=== PATIENT | female | born 2000 | race Caucasian/White ===

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

== ENCOUNTER 2022-11-23 13:28 | Emergency (ER) | payer OTHER, SELFPAY ==
--- NOTE | ~2022-11-23 | US_ITS ---
EXAMINATION: ULTRASOUND OBSTETRIC LIMITED SECOND TRIMESTER CLINICAL INFORMATION: Suprapubic pain COMPARISON: None TECHNIQUE: Limited sonography performed on an urgent basis. FINDINGS: Single live intrauterine gestation noted in breech position with the placenta posterior and free of the os. Cardiac activity observed at 146 BPM. No retroplacental collections. Abdominal circumference 8.7 cm yields estimated menstrual age 15 weeks 0 days. Head circumference 10.39 cm yields estimated menstrual age 15 weeks 0 days. Femur length 1.35 cm yields estimated menstrual age 14 weeks 0 days. Amniotic fluid volume subjectively appears normal. US/US OB limited IMPRESSION: 15 week gestation. Limited study. No abnormalities noted.
[2022-11-23 13:42] VITALS: BP 144/86; PULSE 96; RESP 20; TEMP 36.6; O2SAT 100; BMI 42.9
--- NOTE | 2022-11-23 13:43 | ED.PREGNANCY ---
HPI - General Chief complaint: Abdominal Pain <VALDEMAR Kidd - Last Filed: 11/23/22 13:45> Stated complaint: Pain 15 Wks <VALDEMAR Kidd - Last Filed: 11/23/22 13:45> Time Seen by Provider: 11/23/22 21:17 <VALDEMAR Kidd - Last Filed: 11/23/22 13:45> Source: patient <Bj Figueroa MD - Last Filed: 11/23/22 21:29> Mode of arrival: ambulatory <Bj Figueroa MD - Last Filed: 11/23/22 21:29> Limitations: no limitations <Bj Figueroa MD - Last Filed: 11/23/22 21:29> History of Present Illness HPI Narrative: Patient primary 15 weeks with lower abdominal pain mostly on the left side since yesterday no vaginal discharge any complaints no fevers chills <Bj Figueroa MD - Last Filed: 11/23/22 21:29> Related Data Home medications: Previous Rx's Medication Instructions Recorded ibuprofen 600 mg tablet 600 mg PO Q8H PRN fever or pain 09/13/20 #20 tabs acetaminophen 325 mg capsule 650 mg PO Q6H PRN fever or pain 05/24/21 (Tylenol) #20 caps cefuroxime axetil 250 mg tablet 250 mg PO BID 7 days #14 tabs 11/23/22 <VALDEMAR Kidd - Last Filed: 11/23/22 13:45> Allergies/Adverse reactions: Allergies Allergy/AdvReac Type Severity Reaction Status Date / Time No Known Allergies Allergy Unverified 08/06/20 17:04 [No Known Allergies*] <VALDEMAR Kidd - Last Filed: 11/23/22 13:45> Review of Systems Review of Systems: Yes all other systems are reviewed and are negative <Bj Figueroa MD - Last Filed: 11/23/22 21:29> PMFSH Past Medical History Surgical History: Surgical History History of tonsillectomy <VALDEMAR Kidd - Last Filed: 11/23/22 13:45> Social History Social History: Social History Advance Directives: No Advance Directives Information Provided: Yes <VALDEMAR Kidd - Last Filed: 11/23/22 13:45> Physical Exam Vital Signs: Vital Signs: Last Vital Signs Temp 98 F 11/23/22 13:42 Pulse 96 11/23/22 13:42 Resp 20 11/23/22 13:42 BP 144/86 H 11/23/22 13:42 Pulse Ox 100 11/23/22 13:42 O2 Del Method 11/23/22 13:42 BMI result Body Mass Index 42.9 <VALDEMAR Kidd - Last Filed: 11/23/22 13:45> Vital Signs: Last Vital Signs Temp 98 F 11/23/22 13:42 Pulse 96 11/23/22 13:42 Resp 20 11/23/22 13:42 BP 144/86 H 11/23/22 13:42 Pulse Ox 100 11/23/22 13:42 O2 Del Method 11/23/22 13:42 BMI result Body Mass Index 42.9 <Bj Figueroa MD - Last Filed: 11/23/22 21:29> Appearance: Alert. Oriented X3. No acute distress. ENT: Pharynx normal. Oral Mucosa moist Neck: Normal inspection. Neck supple. CVS: Normal heart rate and rhythm. Pulses normal. Respiratory: No respiratory distress. Equal air entry bilateral, no wheezing/rales/rhonchi Abdomen: Soft, mild suprapubic tenderness Bowel sounds are present, no mass palpable, no CVA tenderness Skin: Skin warm and dry. Normal skin color. Normal skin turgor. Extremities: No lower extremity edema. No calf tenderness Neuro: Oriented X 3. <Bj Figueroa MD - Last Filed: 11/23/22 21:29> Course Course Course Narrative: RME--21-year-old female at 15 weeks gestation presenting to the ED complaining of lower abdominal/suprapubic > abdominal pain since yesterday. Denies associated fever, chills, nausea/vomiting, vaginal bleeding/discharge Abdomen soft with suprapubic/left lower quadrant tenderness on exam Labs, UA, hCG, Ob pelvic ultrasound ordered <VALDEMAR Kidd - Last Filed: 11/23/22 13:45> Medical Decision Making Medical Decision Making MDM Narrative: Patient a pelvic ultrasound shows IUP 15 weeks with normal heart rates UA showed bacteria and WBC will discharge patient home on Ceftin <Bj Figueroa MD - Last Filed: 11/23/22 21:29> Lab Data [facility] Lab Attestation statement: I reviewed the patient's lab results. <Bj Figueroa MD - Last Filed: 11/23/22 21:29> Result Diagrams: : 11/23/22 16:21 11/23/22 16:21 <VALDEMAR Kidd - Last Filed: 11/23/22 13:45> Labs: Lab Results 11/23/22 11/23/22 11/23/22 Range/Units 15:09 16:21 16:21 WBC 8.2 (4.8-10.8) X10*3/uL RBC 4.04 L (4.20-5.50) X10*6/uL Hgb 12.5 (12.0-16.0) g/dl Hct 37.0 (37.0-47.0) % MCV 91.6 (80.0-98.0) fL MCH 30.9 (27.0-33.0) pg MCHC 33.8 (31.0-35.0) g/dl RDW 12.9 (11.0-16.0) % Plt Count 186 (160-400) X10*3/uL MPV 11.8 (9.4-12.3) fL Immature Gran % (Auto) 0.4 (0.0-0.4) % Neut % (Auto) 68.6 (45-73) % Lymph % (Auto) 22.7 (20-40) % Anderson % (Auto) 7.6 (2-11) % Eos % (Auto) 0.5 (0-4) % Baso % (Auto) 0.2 (0-2) % Lymph # (Auto) 1.9 (1.2-4.9) X10*3/uL Anderson # (Auto) 0.6 (0.1-1.2) X10*3/uL Eos # (Auto) 0.0 (0.0-0.4) X10*3/uL Baso # (Auto) 0.0 (0.0-0.2) X10*3/uL Abs Immat Gran (auto) 0.03 (0.00-0.03) X10*3/uL Absolute Neuts (auto) 5.6 (2.0-8.3) x10*3/uL Absolute Nucleated RBC 0.000 (0.0-0.012) X10*3/uL Nucleated RBC % (auto) 0.0 (0.0-0.2) /100WBC Sodium 135 (135-145) mmol/L Potassium 3.8 (3.3-5.1) mmol/L Chloride 107 (96-108) mmol/L Carbon Dioxide 23 (22-29) mmol/L Anion Gap 9 L (12-20) BUN 8 L (9-16) mg/dL Creatinine 0.73 (0.5-1.4) mg/dL Estim Creat Clear Calc 152.9 Estimated GFR > 60 Random Glucose 81 (60-115) mg/dL Calcium 9.0 (8.4-10.2) mg/dL Total Bilirubin 0.2 (0.0-1.0) mg/dL Direct Bilirubin < 0.2 (0.0-0.5) mg/dL AST 11 (5-31) U/L ALT 9 (0-31) U/L Alkaline Phosphatase 57 (39-117) U/L Total Protein 6.5 (6.5-8.0) g/dL Albumin 3.6 (3.5-5.0) g/dL Lipase 23 (8-78) U/L Beta HCG, Quant 71158 mIU/mL Urine Color Yellow Urine Appearance Cloudy Urine pH 7.0 (5.0-9.0) Ur Specific [place] 1.010 (1.005-1.025) Urine Protein Negative (Neg-Trace) mg/dL Urine Glucose (UA) Negative (Negative) mg/dL Urine Ketones Negative (Negative) mg/dL Urine Blood Negative (Negative) Urine Nitrite Negative (Negative) Ur Leukocyte Esterase Large (3+) H (Negative) Urine RBC 0-2 (0-2) /HPF Urine WBC 21-50 H (0-5) /HPF Ur Squamous Epith Cells 11-20 (0-2) /HPF Urine Bacteria 2+ (None Seen) Hyaline Casts 3-5 (0-2) /LPF <VALDEMAR Kidd - Last Filed: 11/23/22 13:45> Lab Results 11/23/22 11/23/22 11/23/22 Range/Units 15:09 16:21 16:21 WBC 8.2 (4.8-10.8) X10*3/uL RBC 4.04 L (4.20-5.50) X10*6/uL Hgb 12.5 (12.0-16.0) g/dl Hct 37.0 (37.0-47.0) % MCV 91.6 (80.0-98.0) fL MCH 30.9 (27.0-33.0) pg MCHC 33.8 (31.0-35.0) g/dl RDW 12.9 (11.0-16.0) % Plt Count 186 (160-400) X10*3/uL MPV 11.8 (9.4-12.3) fL Immature Gran % (Auto) 0.4 (0.0-0.4) % Neut % (Auto) 68.6 (45-73) % Lymph % (Auto) 22.7 (20-40) % Anderson % (Auto) 7.6 (2-11) % Eos % (Auto) 0.5 (0-4) % Baso % (Auto) 0.2 (0-2) % Lymph # (Auto) 1.9 (1.2-4.9) X10*3/uL Anderson # (Auto) 0.6 (0.1-1.2) X10*3/uL Eos # (Auto) 0.0 (0.0-0.4) X10*3/uL Baso # (Auto) 0.0 (0.0-0.2) X10*3/uL Abs Immat Gran (auto) 0.03 (0.00-0.03) X10*3/uL Absolute Neuts (auto) 5.6 (2.0-8.3) x10*3/uL Absolute Nucleated RBC 0.000 (0.0-0.012) X10*3/uL Nucleated RBC % (auto) 0.0 (0.0-0.2) /100WBC Sodium 135 (135-145) mmol/L Potassium 3.8 (3.3-5.1) mmol/L Chloride 107 (96-108) mmol/L Carbon Dioxide 23 (22-29) mmol/L Anion Gap 9 L (12-20) BUN 8 L (9-16) mg/dL Creatinine 0.73 (0.5-1.4) mg/dL Estim Creat Clear Calc 152.9 Estimated GFR > 60 Random Glucose 81 (60-115) mg/dL Calcium 9.0 (8.4-10.2) mg/dL Total Bilirubin 0.2 (0.0-1.0) mg/dL Direct Bilirubin < 0.2 (0.0-0.5) mg/dL AST 11 (5-31) U/L ALT 9 (0-31) U/L Alkaline Phosphatase 57 (39-117) U/L Total Protein 6.5 (6.5-8.0) g/dL Albumin 3.6 (3.5-5.0) g/dL Lipase 23 (8-78) U/L Beta HCG, Quant 14881 mIU/mL Urine Color Yellow Urine Appearance Cloudy Urine pH 7.0 (5.0-9.0) Ur Specific [place] 1.010 (1.005-1.025) Urine Protein Negative (Neg-Trace) mg/dL Urine Glucose (UA) Negative (Negative) mg/dL Urine Ketones Negative (Negative) mg/dL Urine Blood Negative (Negative) Urine Nitrite Negative (Negative) Ur Leukocyte Esterase Large (3+) H (Negative) Urine RBC 0-2 (0-2) /HPF Urine WBC 21-50 H (0-5) /HPF Ur Squamous Epith Cells 11-20 (0-2) /HPF Urine Bacteria 2+ (None Seen) Hyaline Casts 3-5 (0-2) /LPF <Bj Figueroa MD - Last Filed: 11/23/22 21:29> Discharge Plan Discharge Clinical Impression: UTI (urinary tract infection) <VALDEMAR Kidd - Last Filed: 11/23/22 13:45> Patient Disposition: Home, Self-Care <VALDEMAR Kidd - Last Filed: 11/23/22 13:45> Instructions: Urinary Tract Infection in (ED) <VALDEMAR Kidd - Last Filed: 11/23/22 13:45> Additional Instructions: Drink plenty of fluids Ceftin antibiotic twice daily for 7 days Tylenol for pain Report to ER if vaginal bleed or worsening of pain <VALDEMAR Kidd - Last Filed: 11/23/22 13:45> Prescriptions: New cefuroxime axetil 250 mg tablet 250 mg PO BID 7 Days Qty: 14 0RF No Action ibuprofen 600 mg tablet 600 mg PO Q8H PRN (Reason: fever or pain) Qty: 20 0RF acetaminophen [Tylenol] 325 mg capsule 650 mg PO Q6H PRN (Reason: fever or pain) Qty: 20 0RF <VALDEMAR Kidd - Last Filed: 11/23/22 13:45>
[2022-11-23 15:28] LABS: Appearance Urine Cloudy; Color Urine Yellow; Glucose Urine UA Negative (Negative); Leukocyte Esterase Urine Large (3+) (Negative); Nitrite Urine Negative (Negative); UMIC TRIGGER UACC YES; Urine Blood Negative (Negative); Urine Ketones Negative (Negative); Urine Protein Negative (Neg-Trace)
[2022-11-23 16:01] LABS: Bacteria Urine 2+ (None Seen); RBC Urine 0-2 /HPF (0-2); UACC Culture Trigger YES; WBC Urine 21-50 /HPF (0-5)
[2022-11-23 16:26] LABS: MANUAL DIFF FLAG NO
[2022-11-23 16:27] LABS: Basophils Percent Auto 0.2 % (0-2); Eosinophils Percent Auto 0.5 % (0-4); Hemoglobin 12.5 g/dl (12.0-16.0); Imm Gran Abs Auto 0.03 X10*3/uL (0.00-0.03); Imm Gran Pct Auto 0.4 % (0.0-0.4); Lymphocytes Absolute Auto 1.9 X10*3/uL (1.2-4.9); Lymphocytes Percent Auto 22.7 % (20-40); Mean Corpuscular HGB Conc 33.8 g/dl (31.0-35.0); Mean Corpuscular Hemoglobin 30.9 pg (27.0-33.0); Mean Corpuscular Volume 91.6 fL (80.0-98.0); Mean Platelet Volume 11.8 fL (9.4-12.3); Monocytes Absolute Auto 0.6 X10*3/uL (0.1-1.2); Monocytes Percent Auto 7.6 % (2-11); Neutrophils Absolute Auto 5.6 x10*3/uL (2.0-8.3); Neutrophils Percent Auto 68.6 % (45-73); Platelet Count 186 X10*3/uL (160-400); Red Blood Count 4.04 X10*6/uL (4.20-5.50); Red Cell Distribution Width 12.9 % (11.0-16.0); White Blood Count 8.2 X10*3/uL (4.8-10.8)
[2022-11-23 16:59] LABS: Alanine Aminotransferase 9 U/L (0-31); Albumin Level 3.6 g/dL (3.5-5.0); Alkaline Phosphatase 57 U/L (39-117); Anion Gap 9 (12-20); Aspartate Amino Transferase 11 U/L (5-31); Bilirubin Direct < 0.2 mg/dL (0.0-0.5); Bilirubin Total 0.2 mg/dL (0.0-1.0); Blood Urea Nitrogen 8 mg/dL (9-16); Carbon Dioxide 23 mmol/L (22-29); Chloride 107 mmol/L (96-108); Creatinine Clr Calc Pharmacy 152.9; Estimated Glomerular Filt Rate > 60; Glucose Random 81 mg/dL (60-115); Lipase 23 U/L (8-78); Potassium 3.8 mmol/L (3.3-5.1); Sodium 135 mmol/L (135-145); Total Protein 6.5 g/dL (6.5-8.0)
[2022-11-23 17:21] LABS: HCG Quantitative 28890 mIU/mL
== END 2022-11-23 21:49 | disposition home or self-care (01) ==
PROVIDERS: Physician Assistant; Emergency Provider Internal Medicine; PCP Pediatrics
DX: O23.42 Unspecified infection of urinary tract in pregnancy, second trimester (principal); N39.0 Urinary tract infection, site not specified; Z3A.15 15 weeks gestation of pregnancy
CPT/HCPCS: 36415; 76815; 80048; 80076; 81001; 83690; 84702; 85025; 87086; 99282; 99284

== ENCOUNTER → 2022-11-28 08:38 | Outpatient (BNVA) | payer OTHER, SELFPAY | PROVIDERS: PCP Pediatrics; Visit Provider Advanced Practice Midwife | DX: O23.42 Unspecified infection of urinary tract in pregnancy, second trimester (principal); Z3A.15 15 weeks gestation of pregnancy | CPT/HCPCS: 99202 ==

== ENCOUNTER 2024-01-03 15:00 | Outpatient (AMB) | payer SELFPAY ==
--- NOTE | 2024-01-03 15:00 | MHC.OFFVIS ---
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 States her pain in mainly at base of her thumb and wrist area. States it feels tender, pain with pinching, grabbing and twisting. Pain started about 3 days ago and is worsen. 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 She complains of radial sided wrist & thumb pain with daily activity, worse with pinching, gripping, and twisting activities. She says her pain began ~3 days ago She has a young baby at home She denies any falls or known injury, but says she may have struck her hand against a wall a few days ago, which may be related to her pain [facility] Surgical History History of tonsillectomy Family History (Updated 11/28/22 @ 09:06 by EDGAR Mathews) Mother Ovarian cancer Social History (Updated 01/03/24 @ 15:04 by Christy Choi 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 Female Reproductive History Menstrual Age of Menarche: 17 Review of Systems Const All systems reviewed & are unremarkable except as noted in HPI and below Physical Exam Vital Signs: BMI result Body Mass Index 44.9 Const General: cooperative, healthy appearing and no acute distress Orientation/consciousness: patient oriented x3 HEENT Head: Yes normocephalic and Yes atraumatic Eyes EOM: EOMs intact bilaterally Resp Effort & Inspection: normal respiratory effort and able to speak in complete sentences Cardio Jugular venous distension: no JVD Skin General skin exam: turgor normal Rashes: no rashes Neuro General: patient oriented x3 Extrem Other: Evaluation of Left Upper Extremity: The patient is alert, oriented, and in no acute distress Neuro: Median, Ulnar, Radial nerves motor and sensory intact and sensation is normal to the tips of all digits Vascular: Cap refill brisk ROM: She can make a fist and extend all her digits No locking or catching Skin: No lacerations or abrasions. General: No Ecchymosis. No Erythema or evidence of infection. Mild tenderness over the 1st dorsal compartment Negative or equivocal Kemar test on the left More tenderness over the FCR tendon as it passed distally over the scaphoid tubercle. Most tender to palpation just distal to the scaphoid tubercle over the volar aspect of the basal joint and FPL tendon in the thenar mass. However, she had no tenderness dorsally or radially over the basal joint and a negative CMC grind She also had no pain with resisted FPL function, and no locking or catching with IP joint flexion. No tenderness over the MCP joint, and the MCP joint was stable. No tenderness over the a1 haider Psych Appearance: grossly normal Affect: normal affect Attitude: cooperative Assessment & Plan Assessment & Plan (1) Left wrist pain: Code(s): M25.532 - Pain in left wrist (2) Pain of left thumb: Code(s): M79.645 - Pain in left finger(s) Plan Assessment & Plan: 1. Pain at the volar base of the left thenar mass Etiology unclear This has been going on for only 3 days without any clear injury. She does have a young baby at home that she cares for. I educated her about this condition I discussed activity modification, she should limit or avoid any heavy or repetitive pinching or gripping activities She has a hand based thumb spica splint that is soft that she thinks is helpful. She can use Tylenol or ibuprofen as needed. If she still having problems in 3-4 weeks we can talk about this again. Scribed for Naomi Eckert MD by Jesus Buckley, medical data analyst, on 01/03/24 at 3:15 PM, EST. Coding Level of Care Code New Pt Level 3 (23472) Diagnoses Left wrist pain M25.532 Pain of left thumb M79.645
[2024-01-03 15:03] VITALS: BMI 44.9
== END 2024-01-03 15:12 | disposition home or self-care (01) ==
PROVIDERS: PCP Pediatrics; Visit Provider Orthopaedic Surgery
DX: M25.532 Pain in left wrist (principal); M79.645 Pain in left finger(s)
CPT/HCPCS: 99202

== ENCOUNTER → 2024-01-03 15:00 | Outpatient (BNVA) | payer OTHER, SELFPAY | PROVIDERS: PCP Pediatrics; Visit Provider Orthopaedic Surgery | DX: M79.645 Pain in left finger(s) (principal); M25.532 Pain in left wrist | CPT/HCPCS: 99202 ==

== ENCOUNTER → 2024-01-24 10:04 | Outpatient (BNVA) | payer OTHER, SELFPAY | PROVIDERS: PCP Pediatrics; Visit Provider Surgery | DX: R22.1 Localized swelling, mass and lump, neck (principal) | CPT/HCPCS: 99202 ==

== ENCOUNTER → 2024-01-24 10:26 | Outpatient (AMB) | payer OTHER, SELFPAY ==
--- NOTE | 2024-01-24 10:17 | A.OFFVIS_ITS ---
Intake Intake Visit Reasons: ? cervical lymphadenopathy vs lipoma vs cyst Intake Note: Patient here for cyst on Lt upper post neck. Present for yrs. Patient states it has been enlarging. 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 She has had this since her youth. Over the last several months time it is increased in size and become more symptomatic. She wished to have it removed. She has no such lesions or growths elsewhere. She does have recent symptoms of left eye discomfort and migraines which they are unrelated to this process. She denies any fever, chills, night sweats, weight loss. 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 Patient has no other cervical periclavicular or axillary adenopathy. Assessment & Plan Assessment & Plan (1) Mass in neck: Code(s): R22.1 - Localized swelling, mass and lump, neck Plan Patient would like to have this process excised but can not do it today because she is on work break. Current plan is to arrange for a day which is convenient for her and excised this lesion and the office. All questions answered. Arrangements will be made for this. Coding Level of Care Code New Pt Level 4 (20418) Diagnoses Mass in neck R22.1
== END | disposition home or self-care (01) ==
PROVIDERS: PCP Pediatrics; Visit Provider Surgery
DX: R22.1 Localized swelling, mass and lump, neck (principal)
CPT/HCPCS: 99204

== ENCOUNTER 2024-02-06 08:38 | Outpatient (REF) | payer OTHER, SELFPAY | END 2024-02-06 08:39 | disposition home or self-care (01) | LOC: HO.LNP 08:38 | PROVIDERS: PCP Pediatrics; Visit Provider Surgery | DX: R22.1 Localized swelling, mass and lump, neck (principal) | CPT/HCPCS: 38500; 88304; 88305 ==

== ENCOUNTER 2024-02-06 08:38 | Outpatient (AMB) | payer OTHER, SELFPAY ==
--- NOTE | 2024-02-06 08:45 | A.OFFVIS_ITS ---
Intake Vital Signs 02/06/24 08:46 Height 5 ft 5 in Weight 270 lb BMI 44.9 BP 130/73 Blood Pressure Location Rt brachial Position Sitting Pulse 76 Intake Visit Reasons: Exc cervical lymphadenopathy vs lipoma vs cyst Intake Note: Patient here for cyst exc on Lt upper neck. 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 Risks, benefits, alternatives of excision of this process reviewed the patient included but not limited to bleeding, infection, recurrence, numbness, pain, scarring the patient was to proceed. All questions answered. 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 A transverse incision was made over the mass in question and carried down through skin, s ubcutaneous tissue, were uneventful enucleation of proximally 2 x 1 cm lymph node was performed. Specimen sent to pathology. Wound was irrigated, secured hemostasis, and closed using running 3-0 Vicryl suture followed by Steri-Strips and sterile dressings. Patient tolerated procedure well. [id number] scalp/neck/hands/feet/genitalia 1.1cm-2cm Procedure code (CPT) selection complete Office Meds lidocaine 1 %-epinephrine 1:100,000 injection solution Performing Provider: Miki Hays MD Performing Location: [facility] [place] [facility] Sur[facility] Administered by: Miki Hays MD on 02/06/24 10:02 Dose Route Admin Location Dispensed Lot Number Expiration Date ND Superintendent Logging 10 mL Infiltration 10 mL Assessment & Plan Assessment & Plan (1) Mass in neck: Code(s): R22.1 - Localized swelling, mass and lump, neck Plan: Patient has been given local instructions including ice to the wound, avoiding strenuous activities, Tylenol or Motrin for pain and will see me as directed or p.r.n.. Orders: Orders AMB Excision Today R22.1 - Localized swelling, mass and lump, neck Coding Level of Care Code Est Pt Level 5 (16540) Diagnoses Mass in neck R22.1 CPT Codes Scalp/Neck/Hands/Feet/Genetalia - CPT: 43255-[id number] scalp/neck/hands/feet/genitalia 1.1cm-2cm ([id number])
[2024-02-06 08:46] VITALS: BP 130/73; PULSE 76; BMI 44.9
== END 2024-02-06 09:25 | disposition home or self-care (01) ==
PROVIDERS: PCP Pediatrics; Visit Provider Surgery
DX: R59.0 Localized enlarged lymph nodes (principal)
CPT/HCPCS: 38500

== ENCOUNTER 2024-02-14 11:25 | Outpatient (AMB) | payer OTHER, SELFPAY ==
--- NOTE | 2024-02-14 11:28 | MHC.OFFVIS ---
Intake Vital Signs 02/14/24 11:33 Height 5 ft 5 in Weight 275 lb BMI 45.8 BP 124/75 Blood Pressure Location Rt brachial Position Sitting Pulse 86 Intake Visit Reasons: S/p Exc cervical lymphadenopathy vs lipoma vs cyst Intake Note: Patient here s/p exc on lt upper neck. Reports incision healing well. Patient c/o: denies bleeding, tenderness, redness. EXC 02-06-24. 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 She has no wound issues or complaints. 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 All questions answered. Coding Level of Care Code Global (48909) Diagnoses Postop check Z09
[2024-02-14 11:33] VITALS: BP 124/75; PULSE 86; BMI 45.8
== END 2024-02-14 11:36 | disposition home or self-care (01) ==
PROVIDERS: PCP Pediatrics; Visit Provider Surgery
DX: Z09 Encounter for follow-up examination after completed treatment for conditions other than malignant neoplasm (principal)
CPT/HCPCS: 99024

== ENCOUNTER → 2024-02-14 11:25 | Outpatient (BNVA) | payer OTHER, SELFPAY | PROVIDERS: PCP Pediatrics; Visit Provider Surgery | DX: Z09 Encounter for follow-up examination after completed treatment for conditions other than malignant neoplasm (principal); Z87.2 Personal history of diseases of the skin and subcutaneous tissue | CPT/HCPCS: 99212 ==

== ENCOUNTER 2024-03-12 11:32 | Outpatient (AMB) | payer OTHER, SELFPAY ==
--- NOTE | 2024-03-12 11:38 | A.OFFVIS_ITS ---
Vital Signs 03/12/24 11:45 Height 5 ft 5 in Weight 275 lb BMI 45.8 BP 137/62 Blood Pressure Location Rt brachial Position Sitting Pulse 83 Intake Visit Reasons: neck lumps? rash Intake Note: Patient here concern with itch on sup part of incision scar from previous exc on Lt post neck. Reports bumps underneath scar. 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
[2024-03-12 11:45] VITALS: BP 137/62; PULSE 83; BMI 45.8
--- NOTE | 2024-03-12 12:38 | A.OFFVIS_ITS ---
Vital Signs 03/12/24 11:45 03/12/24 12:39 Height 5 ft 5 in Weight 275 lb BMI 45.8 45.8 BP 137/62 Blood Pressure Location Rt brachial Position Sitting Pulse 83 Intake Visit Reasons: neck lumps? rash Allergies No Known Allergies [No Known Allergies*] Allergy (Verified 03/12/24 11:47) HPI Comments Details: Patient presents for incision evaluation. She has no issues or complaints of site that the incision is still firm. 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 There is firmness which is related to an underlying sutures. Patient was reassured that these take anyw here from 6-12 weeks to dissolve. Quality Reporting (2019) Adult ([facility] ) Body Mass Index: 45.8 Assessment & Plan Assessment & Plan (1) Postop check: Code(s): Z09 - Encounter for follow-up examination after completed treatment for conditions other than malignant neoplasm Category: Surgical Plan Patient has been given local instructions, and will follow-up p.r.n.. All questions answered. Coding Level of Care Code Global (93133) Diagnoses Postop check Z09
[2024-03-12 12:39] VITALS: BMI 45.8
== END 2024-03-12 11:53 | disposition home or self-care (01) ==
PROVIDERS: PCP Pediatrics; Visit Provider Surgery
DX: Z09 Encounter for follow-up examination after completed treatment for conditions other than malignant neoplasm (principal)
CPT/HCPCS: 99024

== ENCOUNTER → 2024-03-12 11:32 | Outpatient (BNVA) | payer OTHER, SELFPAY | PROVIDERS: PCP Pediatrics; Visit Provider Surgery | DX: Z09 Encounter for follow-up examination after completed treatment for conditions other than malignant neoplasm (principal); Z98.890 Other specified postprocedural states | CPT/HCPCS: 99212 ==

== ENCOUNTER 2024-10-29 13:14 | Outpatient (REF) | payer OTHER, SELFPAY ==
--- NOTE | ~2024-10-29 | XR_ITS ---
EXAMINATION: XR HAND RIGHT CLINICAL INFORMATION: Pain in right hand M79.641. COMPARISON: None TECHNIQUE: PA, lateral, and oblique views of the right hand. FINDINGS: No radiographic evidence of acute fracture. Overlapping osseous structures at the carpometacarpal joints limits evaluation. Otherwise, the alignment is anatomic, joint spaces are maintained.. No erosions or soft tissue calcifications. XR/XR hand RT min 3V IMPRESSION: No radiographic evidence of acute osseous abnormality. Limited evaluation of the carpometacarpal joints due to overlapping osseous structures, which could be related to positioning/technique. Wrist radiographs for further evaluation as clinically indicated. Study is assigned/presented to me for interpretation on Dec 05, 2024 Electronically signed by: Garrison Dueñas MD 12/05/2024 04:28 PM ALEX LIRA
== END 2024-10-29 13:15 | disposition home or self-care (01) ==
LOC: HO.HOSX 13:14
PROVIDERS: PCP Pediatrics; Visit Provider Orthopaedic Surgery
DX: M79.641 Pain in right hand (principal)
CPT/HCPCS: 73130; 99212

== ENCOUNTER 2024-10-29 13:14 | Outpatient (AMB) | payer SELFPAY ==
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
[2024-10-29 13:56] VITALS: BMI 45.8
== END 2024-10-29 14:40 | disposition home or self-care (01) ==
LOC: HO.HOS 13:14
PROVIDERS: PCP Pediatrics; Visit Provider Orthopaedic Surgery
DX: M77.8 Other enthesopathies, not elsewhere classified (principal)
CPT/HCPCS: 99213

== ENCOUNTER 2025-04-10 22:47 | Emergency (ER) | payer OTHER, SELFPAY ==
[2025-04-10 22:58] VITALS: BP 124/84; PULSE 86; O2SAT 97
[2025-04-10 23:04] VITALS: BP 142/74; PULSE 86; RESP 18; TEMP 36.6; O2SAT 97; BMI 47.2
--- NOTE | 2025-04-10 23:25 | ED.EXTPRO ---
HPI - Extremity Problem General Chief complaint: Extremity Injury, Upper Stated complaint: laceration on middle and ring finger Time Seen by Provider: 04/10/25 23:19 Source: patient and EMS Mode of arrival: EMS Limitations: no limitations History of Present Illness ED Provider: Dr. Mimi Manuel HPI Narrative: Patient comes to the emergency room complaining of lacerations to the palmar aspect of the left middle and for finger. Patient states that she was trying to open at bag of hot dogs and accidentally sliced her fingers. Denies any other injuries Related Data Home Medications ?Medication ?Instructions ?Recorded ?Confirmed vitamin with calcium 1 tab PO DAILY 11/28/22 11/28/22 no.72-iron 27 mg-folic acid 1 mg tablet (M- Plus) Previous Rx's ?Medication ?Instructions ?Recorded ibuprofen 600 mg tablet 600 mg PO Q8H PRN fever or pain 09/13/20 #20 tabs acetaminophen 325 mg capsule 650 mg (2 x 325 mg) PO Q6H PRN 05/24/21 (Tylenol) fever or pain #20 caps ibuprofen 800 mg tablet 800 mg PO Q8H PRN pain #30 tabs 02/07/24 Allergies Allergy/AdvReac Type Severity Reaction Status Date / Time No Known Allergies Allergy Verified 04/10/25 23:06 [No Known Allergies*] Review of Systems Review of Systems: Constitutional : No Weight loss, No Fever, No Chills, No Night Sweats, No Fatigue, No Malaise ENT/Mouth : No Hearing loss, No Ear Pain, No Nasal Congestion, No Sinus Pain, No Hoarseness, No sore throat, No Rhinorrhea, No Swallowing Difficulty Eyes: No Eye Pain, No Swelling, No Redness, No Foreign Body, No Discharge, No Vision Changes Cardiovascular : No Chest Pain, No SOB, No Dyspnea on Exertion, No Orthopnea, No Edema, No Palpitations Respiratory : No Cough, No Sputum, No Wheezing, No Smoke Exposure, No Dyspnea Gastrointestinal : No Nausea, No Vomiting, No Diarrhea, No Constipation, No abdominal Pain, No Hematochezia, No Melena Genitourinary : no irregular bleeding, No Dysuria, No Urinary Frequency, No Hematuria, No Urinary Incontinence, No Urgency, No Flank Pain, No Urinary Flow Changes, No Hesitancy Musculoskeletal : No joint pain, No Myalgias, No Joint Swelling Skin : complaining of laceration to 2 fingers of the left hand Neuro : No Weakness, No Numbness, No Paresthesias, No Loss of Consciousness, No Dizziness, No Headache Psych : No Anxiety/Panic, No Depression, No SI/HI/AH/VH, No Social Issues, Heme/Lymph: No Bruising, No Bleeding,No Lymphadenopathy Endocrine : No Polyuria, No Polydipsia, No Temperature Intolerance [facility] Past Medical History Surgical History History of tonsillectomy Family History Family History Mother Ovarian cancer Social History Social History Do you have a plan to hurt others: No Plan Current occupational status: employed 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 Oriented X3. No acute distress. Eyes: Pupils equal, round and reactive to light. ENT: Pharynx normal. Neck: Normal inspection. Neck supple. No lymph nodes noted. No crepitus CVS: Normal heart rate and rhythm. Pulses normal. Normal S1 and S2 Respiratory: No respiratory distress. Breath sounds normal. No Wheezing. No rales Abdomen: Soft and nontender. No rigidity. No distention. Skin: Skin warm and dry. Normal skin color. Normal skin turgor. see extremities below Extremities: No lower extremity edema. No Lacerations. No Rash on the palmar aspect of the left hand, patient has a 2 cm laceration on the middle finger and and a 1 cm laceration on the fourth finger. Fingers were examined under a bloodless field. Patient is able to flex and extend all fingers with normal range of motion. No tendons were visualized Neuro: Oriented X 3. No motor deficit. No sensory deficit. Moving all extremities. No slurred speech. CN 2 through 12 grossly intact Psych: calm, cooperative, normal affect Medications Administered Discontinued Medications Generic Name Dose Route Start Last Admin Trade Name Freq PRN Reason Stop Dose Admin Acetaminophen 975 mg 04/10/25 23:24 04/10/25 23:34 Acetaminophen 325 Mg Tablet PO 04/10/25 23:25 975 mg ONCE ONE Administration Lidocaine HCl 20 ml 04/10/25 23:24 04/10/25 23:36 Lidocaine Hcl 1 % 20 Ml Vial INFILTRATI 04/10/25 23:25 20 ml ONCE ONE Administration Medical Decision Making Medical Decision Making MDM Narrative: patient needed 5 stitches in the middle finger and 4 stitches on the 4th finger patient's skin was numbed with 1% lidocaine without epinephrine patient was given a Tdap booster Procedures Laceration Laceration 1: Site: hand ( middle finger) Side (If applicable): left Size (cm): 2 Description: linear Depth: simple, single layer Local Anesthetic: lidocaine 1% Amount of anesthesia used (mL): 5 Pre-repair: wound explored and irrigated extensively Skin layer closed with: nylon Size (cm): 3-0 Number of sutures: 5 Laceration 2: Site: hand ( 4th finger) Side (If applicable): left Size (cm): 1.5 Description: linear Depth: simple, single layer Local Anesthetic: lidocaine 1% Amount of anesthesia used (mL): 5 Pre-repair: wound explored and irrigated extensively Skin layer closed with: nylon Size (cm): 3-0 Number of sutures: 4 Technique: simple, interrupted Discharge Plan Discharge Clinical Impression: Laceration of fingers without complication Patient Disposition: Home, Self-Care Instructions: Laceration (ED), Finger Laceration (ED) Additional Instructions: your stitches need to be removed in 7-10 days. Please follow-up with your primary care physician tomorrow. If you have any worsening or new symptoms, please return to the emergency room or call 911 Prescriptions: No Action ibuprofen 600 mg tablet 600 mg PO Q8H PRN (Reason: fever or pain) Qty: 20 0RF acetaminophen [Tylenol] 325 mg capsule 650 mg PO Q6H PRN (Reason: fever or pain) Qty: 20 0RF M- Plus 27 mg iron- 1 mg tablet 1 tab PO DAILY ibuprofen 800 mg tablet 800 mg PO Q8H PRN (Reason: pain) Qty: 30 0RF Print Language: Slovak
[2025-04-10] MEDS: Acetaminophen 325 MG TABLET 975 MG PO (23:34)
[2025-04-10] MEDS: Lidocaine HCl 1 % 20 ML VIAL INFILTRATI (23:36)
[2025-04-10] MEDS: Diphth,Pertus(ACell),Tet Adult 0.5 ML SYRINGE IM (23:59)
--- OUTSIDE RECORDS SUMMARY | 2025-04-11 00:13 | XMS_ITS | Clinical Summary ---
Author Organization [facility] Address [address] [place] [id number] Phone Care Team Providers Care Classroom Instructor Name Role Phone Unavailable Primary Care Provider Unavailabl e Immunizations Immunization Administration Dates Next Due DTaP 5 06/11/2007, 4,08/25/2003,05/30/2003 ,03/12/2003 Hep B, ped/adol 12/29/2003,08/25/2003,2002 Hib (HbOC) 06/29/2004 Hib (PRP-T) 08/25/2003,05/30/2003,03/12/2003 IPV 06/11/2007,12/29/2003,05/30/2003 ,03/12/2003 Influenza, injectable, trivalent 08/04/2008 MMR 12/29/2003 MMRV 06/11/2007 Pneumococcal Conjugate 01/06/2005,08/25/2003,09/2003,03/12/2003 Unknown Vaccine 06/11/2007 Varicella 12/29/2003 Social History Tobacco Use Types Packs/Day Years Used Date Smoking Tobacco: Never Assessed Comments Unknown Sex and Gender Information Value Date Recorded Sex Assigned at Not on file Legal Sex Female 4:25 PM EDT Gender Identity Not on file Sexual Orientation Not on file Plan of Treatment Health Maintenance Due Date Last Done Comments DTaP,Tdap,and Td Vaccines (6 - Tdap) 2013 06/11/2007, 06/29/2004, 08/25/2003, Additional history exists HPV Vaccines (1 - 3-dose series) 2017 Men B Vaccine (1 of 2 - Standard) 2018 Influenza Vaccines (#1) 2024 08/04/2008 COVID-19 Vaccine ( season) 2024 Hepatitis B Vaccines Completed 12/29/2003, 08/25/2003, 2002 HIB Vaccines Completed 06/29/2004, 04/2003, 05/30/2003, Additional history exists Pneumococcal Vaccine Completed 01/06/2005, 08/25/2003, 05/30/2003, Additional history exists IPV Vaccines Completed 06/11/2007, 07/2004, 05/30/2003, Additional history exists MMR Vaccines Completed 06/11/2007, 12/29/2003 Varicella Vaccines Completed 06/11/2007, 12/29/2003 Hepatitis A Vaccines Aged Out No long er eligible based on patient's age to complete this topic Meningococcal Vaccine Aged Out No kian dao eligible based on patient's age to complete this topic
[2025-04-11 00:19] VITALS: BP 120/68; PULSE 84; RESP 18; TEMP 36.6; O2SAT 98
== END 2025-04-11 00:20 | disposition home or self-care (01) ==
PROVIDERS: Emergency Provider Emergency Medicine
DX: S61.213A Laceration without foreign body of left middle finger without damage to nail, initial encounter (principal); S61.215A Laceration without foreign body of left ring finger without damage to nail, initial encounter; W26.9XXA Contact with unspecified sharp object(s), initial encounter; Y93.9 Activity, unspecified; Y92.9 Unspecified place or not applicable; Y99.8 Other external cause status; Z79.899 Other long term (current) drug therapy; Z23 Encounter for immunization
CPT/HCPCS: 12002; 90471; 90715; 99283; 99284; J2003

== ENCOUNTER 2025-04-21 08:53 | Emergency (ER) | payer OTHER, SELFPAY ==
[2025-04-21 09:04] VITALS: BP 134/78; PULSE 89; RESP 16; TEMP 36.6; O2SAT 97; BMI 45.7
--- NOTE | 2025-04-21 09:15 | ED.GENADULT ---
HPI - General Adult General Chief complaint: General Medical Stated complaint: suture removal Time Seen by Provider: 04/21/25 09:03 Source: patient, RN notes reviewed and old records reviewed Mode of arrival: ambulatory History of Present Illness ED Provider: Michelle Troncoso PA-C [facility] narrative: 24-year-old female with no significant past medical history presenting to the ED for suture removal s/p laceration when opening bag of hot dogs on 04/10/2025. Patient was evaluated in our ED, 9 sutures were placed at that time. Reports persistent paresthesias to area. Denies any complaints at present including surrounding erythema, discharge, increased/worsening pain Related Data Home Medications ?Medication ?Instructions ?Recorded ?Confirmed vitamin with calcium 1 tab PO DAILY 11/28/22 11/28/22 no.72-iron 27 mg-folic acid 1 mg tablet (M-Yasmin Plus) Previous Rx's ?Medication ?Instructions ?Recorded ibuprofen 600 mg tablet 600 mg PO Q8H PRN fever or pain 09/13/20 #20 tabs acetaminophen 325 mg capsule 650 mg (2 x 325 mg) PO Q6H PRN 05/24/21 (Tylenol) fever or pain #20 caps ibuprofen 800 mg tablet 800 mg PO Q8H PRN pain #30 tabs 02/07/24 bacitracin 500 unit/gram topical 1 appl topical BID #30 grams 04/21/25 ointment Allergies Allergy/AdvReac Type Severity Reaction Status Date / Time No Known Allergies Allergy Verified 04/21/25 09:09 [No Known Allergies*] Review of Systems Review of Systems: Yes all other systems are reviewed and are negative Constitutional: Constitutional: Reports as per [facility] Past Medical History Attestation statement: The following information was validated with the patient. 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 Physical Exam ED Vital Signs: Vital Signs - 24 hr 04/21/25 09:04 04/21/25 09:18 Temperature 97.8 F 97.8 F Pulse Rate 89 89 Respiratory Rate 16 16 Blood Pressure 134/78 134/78 Pulse Oximetry 97 97 Oxygen Delivery Method Room Air Room Air BMI result Body Mass Index 45.7 Const General: cooperative, healthy appearing and no acute distress Orientation/consciousness: patient oriented x3 Limitations: no limitations HENMT Head: Yes normal to inspection and Yes atraumatic Ears: hearing grossly normal bilaterally General nose exam: Normal external nose present Face and sinus: Yes normal facial exam Eyes General: appearance normal, both eyes and all related structures EOM: EOMs intact bilaterally Neck Neck: Yes normal visual inspection and Yes no meningeal signs Resp Effort & Inspection: normal respiratory effort and no respiratory distress Cardio Rate: regular rate Skin Other: Healing lacerations noted to left 3rd and 4th digits. Sutures intact. No surrounding erythema/ warmth. Mildly tender to palpation. No fluctuance/ induration or pus drainage. No dehiscence. ROM intact with some discomfort. Sensation intact to light touch Rashes: no rashes Neuro General: patient oriented x3, tone normal and no meningeal signs Cranial nerves: Yes CN's II-XII intact bilaterally Gait exam (Neuro): Normal gait present Extrem General: Yes normal to inspection Procedures Procedure Narrative Procedure Narrative: Suture removal 9 sutures removed from left 3rd and 4th digits without complication Steri-Strips applied to 4th digit Medical Decision Making Medical Decision Making MDM Narrative: 24-year-old female with no significant past medical history presenting to the ED for suture removal s/p laceration when opening bag of hot dogs on 04/10/2025. On exam vital signs stable, NAD, nontoxic appearing physical exam as noted above. Nine sutures removed without complication, steri-Strips applied to 4th digit. no evidence of overlying cellulitis/abscess. Patient with limited ROM secondary to pain/ discomfort. Will refer to hand for follow-up as needed. Please refer to course for remaining clinical decision making, interpretation of labs/imaging results, and discussions with consultants and/or family members. Results discussed with patient including worrisome signs and symptoms and strict return precautions, and when to return to the emergency department. They verbalized understanding and feel safe for discharge at this time. Differential Diagnosis Differential Diagnoses: The differential diagnosis associated with the presentation includes As above External Record Review External record reviewed: Inpatient record, Office record, Outpatient record, Prior outpatient labs, Prior outpatient radiology, Primary care record and Outside ED record Tests considered The following testing was considered but not selected: As above Prescription Management I considered prescription management with: Antibiotic and Other Chronic Conditions Patient?s care impacted by: Other Social Determinants Patient?s care significantly limited by Social Determinants of Health including: Other Social Determinant of Health Discharge Plan Discharge Clinical Impression: Visit for suture removal Patient Disposition: Home, Self-Care Instructions: Stitches Removal (ED) Additional Instructions: Apply bacitracin and or Neosporin daily Once sutures are removed apply anti scar cream like Mederma Follow-up with hand specialist as needed If area begins look infected, is red, there is drainage, streaking, or you have fever please return to the emergency department Prescriptions: New bacitracin 500 unit/gram ointment 1 appl topical BID Qty: 30 0RF No Action ibuprofen 600 mg tablet 600 mg PO Q8H PRN (Reason: fever or pain) Qty: 20 0RF acetaminophen [Tylenol] 325 mg capsule 650 mg PO Q6H PRN (Reason: fever or pain) Qty: 20 0RF M- Plus 27 mg iron- 1 mg tablet 1 tab PO DAILY ibuprofen 800 mg tablet 800 mg PO Q8H PRN (Reason: pain) Qty: 30 0RF Referrals: [facility] – [place] [facility] [Provider Group] - 1 week Interventions: ED Discharge Assessment Last Done: 04/21/25 09:18 Discharge Date/Time: 04/21/25 09:18 Print Language: Ethiopian
[2025-04-21 09:18] VITALS: BP 134/78; PULSE 89; RESP 16; TEMP 36.6; O2SAT 97
--- OUTSIDE RECORDS SUMMARY | 2025-04-21 09:47 | XMS_ITS | Clinical Summary ---
Author Organization [facility] Address [address] [place] [id number] Phone Care Team Providers Care Executive Administrative Asst Name Role Phone Unavailable Primary Care Provider [...]
== END 2025-04-21 09:18 | disposition home or self-care (01) ==
PROVIDERS: Emergency Provider Emergency Medicine Emergency Medical Services
DX: Z48.02 Encounter for removal of sutures (principal); Z79.899 Other long term (current) drug therapy
CPT/HCPCS: 99282; 99283

== ENCOUNTER 2025-04-30 09:18 | Outpatient (AMB) | payer OTHER, SELFPAY ==
[2025-04-30 09:23] VITALS: BMI 45.6
--- NOTE | 2025-04-30 09:23 | A.OFFVIS_ITS ---
Vital Signs 04/30/25 09:23 04/30/25 09:27 Height 5 ft 5 in 5 ft 5 in Weight 274 lb 274 lb BMI 45.6 45.6 Intake Visit Reasons: ED follow up LT MF&RF laceration 04/10/25 Intake Note: yCnthia 24 yr old right hand dominant female presents today fo rher left hand DOI: 04/10/25. Patient reports lacerating the palmar aspect of the left 3rd and 4th left digits. Patient states that she was trying to open at bag of hot dogs and accidentally sliced her fingers. She expresses she is having difficulty with flexion and extension of her 3rd and 4th digits of left hand. She is also having numbness in her middle finger. Allergies No Known Allergies [No Known Allergies*] Allergy (Verified 04/30/25 09:29) HPI HPI ED follow up LT MF&RF laceration 04/10/25: Details: Cynthia 24 yr old right hand dominant female presents today fo rher left hand DOI: 04/10/25. Patient reports lacerating the palmar aspect of the left 3rd and 4th left digits. Patient states that she was trying to open at bag of hot dogs and accidentally sliced her fingers. She expresses she is having difficulty with flexion and extension of her 3rd and 4th digits of left hand. She is also having numbness in her middle finger. 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 Neuro: No sensation at the level of and distal to the laceration of the left middle finger, primarily on the ulnar aspect Slightly diminished sensation on the radial aspect of the left middle finger distal to the incision Normal sensation to the left ring finger Normal sensation of the tips of all digits of the right hand at this time Vascular: Cap refill brisk Pain: No tenderness to palpation around the laceration sites on the left middle and ring fingers Patient does have discomfort with both flexion and extension of the digits ROM: Patient is able to make a week closed fist, able to be passively extended fully and can hold mostly full extension Skin: No lacerations or abrasions. General: No ecchymosis, erythema, or evidence of infection. Psych: Appears grossly normal Affect normal Attitude cooperative Assessment & Plan Assessment & Plan (1) Laceration of left ring finger: Code(s): S61.215A - Laceration without foreign body of left ring finger without damage to nail, initial encounter Category: Medical (2) Laceration of left middle finger: Code(s): S61.213A - Laceration without foreign body of left middle finger without damage to nail, initial encounter Category: Medical Plan 1. Laceration of left middle and ring fingers complicated by digital nerve injury of the left middle finger 2. Stiffness of left hand Patient is educated about these conditions Patient is educated about the typical recovery course At this time, patient is informed that there is nothing we can do 1 month later for a digital nerve injury, and in his likely she will continue to have diminished sensation in the left middle finger and this may or may not return Patient expresses understanding of this With regards to what appears to be stiffness of the left hand, patient is referred to occupational therapy for range of motion, very gentle strengthening of the left hand Patient is amenable to this plan Follow-up as Orders: Orders OT Evaluation and Treatment 04/30/25 S61.213A - Laceration without foreign body of left middle finger without damage to nail, initial encounter, S61.215A - Laceration without foreign body of left ring finger without damage to nail, initial encounter Coding Level of Care Code Est Pt Level 3 (74885) Diagnoses Laceration of left ring finger S61.215A Laceration of left middle finger S61.213A
[2025-04-30 09:27] VITALS: BMI 45.6
--- OUTSIDE RECORDS SUMMARY | 2025-04-30 10:00 | XMS_ITS | Clinical Summary ---
Author Organization [facility] Address [address] [place] [phone] Phone Care Team Providers Care Sales Training Coordinator Name Role Phone Unavailable Primary Care Provider [...]
== END 2025-04-30 10:19 | disposition home or self-care (01) ==
LOC: HO.HOS 09:19
DX: S61.215A Laceration without foreign body of left ring finger without damage to nail, initial encounter (principal); S61.213A Laceration without foreign body of left middle finger without damage to nail, initial encounter
CPT/HCPCS: 99213

== ENCOUNTER → 2025-04-30 09:18 | Outpatient (BNVA) | payer OTHER, SELFPAY | DX: Z09 Encounter for follow-up examination after completed treatment for conditions other than malignant neoplasm (principal); S61.213A Laceration without foreign body of left middle finger without damage to nail, initial encounter; S61.215A Laceration without foreign body of left ring finger without damage to nail, initial encounter; W26.0XXA Contact with knife, initial encounter; Y93.G3 Activity, cooking and baking; Y92.000 Kitchen of unspecified non-institutional (private) residence as the place of occurrence of the external cause; Y99.9 Unspecified external cause status | CPT/HCPCS: 99212 ==

== ENCOUNTER 2025-09-12 08:35 | Emergency (ER) | payer OTHER, SELFPAY ==
--- NOTE | ~2025-09-12 | XR_ITS ---
EXAMINATION: XR CHEST CLINICAL INFORMATION: chest pain COMPARISON: None available. TECHNIQUE: Frontal view of the chest was obtained. FINDINGS: No significant abnormality is noted involving the heart, lungs, mediastinum, bony thorax or soft tissues. XR/XR chest 1V IMPRESSION: No acute disease Electronically signed by: Ean Figueroa MD 09/12/2025 10:09 AM EDT
--- NOTE | ~2025-09-12 | CT_ITS ---
EXAMINATION: CT HEAD WITHOUT CONTRAST CLINICAL INFORMATION: Headache COMPARISON: None available. TECHNIQUE: Contiguous axial imaging was performed from the skull base to vertex without intravenous administration of contrast. This CT examination was performed using dose optimization techniques as appropriate, variously including the following: *Automated exposure control *Adjustment of mA and/or kV according to patient size (this includes techniques or standardized protocols for targeted exams where dose is matched to indication/reason for exam; i.e. extremities or head) *Use of iterative reconstruction technique FINDINGS: There is no acute ischemic change. There is no intracranial hemorrhage. There is no mass-effect or midline shift. Basal cisterns and ventricles are within normal limits for age/cerebral volume. Orbits are symmetrical and unremarkable. Paranasal sinuses and mastoid air cells are pneumatized. There are no bony abnormalities. CT/CT head/brain wo IV con IMPRESSION: No acute intracranial abnormality. Electronically signed by: Ean Figueroa MD 09/12/2025 10:16 AM EDT
--- NOTE | 2025-09-12 08:38 | ECG_ITS ---
Test Reason : chest pain Blood Pressure : */* mmHG Vent. Rate : 79 BPM Atrial Rate : 79 BPM P-R Int : 152 ms QRS Dur : 88 ms QT Int : 350 ms P-R-T Axes : 57 59 18 degrees QTcB Int : 401 ms Normal sinus rhythm with sinus arrhythmia Normal ECG No previous ECGs available Referred By: Generic ED Physician Electronically Signed By: MARINA RODRÍGUEZ MD
[2025-09-12 08:48] VITALS: BP 121/60; PULSE 73; RESP 18; TEMP 36.7; O2SAT 99; BMI 44.0
[2025-09-12 09:02] LABS: MANUAL DIFF FLAG NO
[2025-09-12 09:08] LABS: Hematocrit 39.3 % (37.0-47.0); Hemoglobin 13.1 g/dl (12.0-16.0); Imm Gran Abs Auto 0.01 X10*3/uL (0.00-0.03); Imm Gran Pct Auto 0.1 % (0.0-0.4); Lymphocytes Absolute Auto 2.5 X10*3/uL (1.2-4.9); Mean Corpuscular HGB Conc 33.3 g/dl (31.0-35.0); Mean Corpuscular Hemoglobin 30.1 pg (27.0-33.0); Mean Corpuscular Volume 90.3 fL (80.0-98.0); NRBC Abs Auto 0.000 X10*3/uL (0.0-0.012); NRBC Pct Auto 0.0 /100WBC (0.0-0.2); Platelet Count 202 X10*3/uL (160-400); Red Blood Count 4.35 X10*6/uL (4.20-5.50); White Blood Count 7.6 X10*3/uL (4.8-10.8)
[2025-09-12 09:17] LABS: UPreg QC Valid YES
[2025-09-12 09:26] LABS: Alanine Aminotransferase 14 U/L (0-31); Albumin Level 4.7 g/dL (3.5-5.0); Alkaline Phosphatase 69 U/L (39-117); Anion Gap 11 (12-20); Aspartate Amino Transferase 14 U/L (5-31); Blood Urea Nitrogen 17 mg/dL (9-16); Calcium 9.5 mg/dL (8.4-10.2); Carbon Dioxide 24 mmol/L (22-29); Chloride 108 mmol/L (96-108); Creatinine Clr Calc Pharmacy 136.2; Estimated Glomerular Filt Rate > 60; Potassium 4.0 mmol/L (3.3-5.1); Sodium 139 mmol/L (135-145); Total Protein 7.6 g/dL (6.5-8.0)
--- NOTE | 2025-09-12 09:26 | ED_ITS ---
HPI - General Adult General Chief complaint: General Medical Stated complaint: vomiting, CP, headache Time Seen by Provider: 09/12/25 09:17 Source: patient and old records reviewed Mode of arrival: ambulatory Limitations: no limitations History of Present Illness ED Provider: REBEKA DOTY narrative: 24 yo female with PMH Of UTI, tendonitis here with c/o 1 week AM wakes up feels weak and feels like her vision gets blurry when she tries to get up. She notes it goes away after a few minutes of rest. She also c/o headache on L side that is sharp and intermittent - she denies head trauma, numbness, weakness. She also reports L chest pain with movements, no dyspnea, no cough, no fevers. She has no hx of CAD in young family members or sudden cardiac . She denies any neck issues/pain/trauma/manipulation. She also notes she felt nauseated and vomited this AM. MD complaint: multiple complaints Onset (ago): week(s) (1) Location: head, chest and abdomen Radiation: non-radiation Severity: moderate Quality: stabbing and aching Pain Consistency: intermittent Relieving factors: none Exacerbating factors: movement Associated symptoms: headaches and nausea/vomiting Treatments prior to arrival: none Related Data Home Medications ?Medication ?Instructions ?Recorded ?Confirmed amoxicillin 500 mg capsule 500 mg PO Q8H 09/10/25 [id number] carb-vit K 1 tab PO DAILY 08/21 01/14 18 mg iron-400 mcg-500 mg tablet Previous Rx's ?Medication ?Instructions ?Recorded ibuprofen 600 mg tablet 600 mg PO Q8H PRN fever or p ain 09/13/20 #20 tabs acetaminophen 325 mg capsule 650 mg (2 x 325 mg) PO Q6 H PRN 05/24/21 (Tylenol) fever or pain #20 caps famotidine 20 mg tablet (Pepcid) 20 mg PO DAILY PRN ab dominal 09/12/25 discomfort #30 tabs ondansetron 4 mg disintegrating 4 mg PO Q8H PRN nausea and 09/12/25 tablet vomiting #20 tabs Allergies Allergy/AdvReac Type Severity Reaction Status Date / Time No Known Allergies (No Known Allergy Verified 09/12/25 08:51 Allergies*) Review of Systems 2 Review of Systems: Constitutional : No Fever, No Chills, No Fatigue ENT/Mouth : No sore throat, No Rhinorrhea Eyes: No Eye Pain, No Swelling, No Redness Cardiovascular : No Chest Pain, No SOB, No Dyspnea on Exertion Respiratory : No Cough, No Sputum Gastrointestinal : pos Nausea, pos Vomiting, No Diarrhea, No abdominal Pain Genitourinary : No Dysuria, No Urinary Frequency, No Hematuria, Musculoskeletal : No joint pain, No Myalgias, No Joint Swelling Skin : No Skin Lesions, No rash Neuro : pos Weakness, No Numbness, No Dizziness, positive Headache All other systems reviewed and are negative [facility] Past Medical History Attestation statement: The following information was validated with the patient. 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 Oriented X3. No acute distress. Eyes: Pupils equal, round and reactive to light. ENT: Pharynx normal. normal TMs Neck: Normal inspection. Neck supple. CVS: Normal heart rate and rhythm. Pulses normal. Respiratory: No respiratory distress. Breath sounds normal. Abdomen: Soft and nontender. Skin: Skin warm and dry. Normal skin color. Normal skin turgor. Extremities: No lower extremity edema. No calf ttp Neuro: Oriented X 3. No motor deficit. No sensory deficit. CN2-12 intact Medications Administered Discontinued Medications Generic Name Dose Route Start Last Admin Trade Name Christopher PRN Reason Stop Dose Admin Famotidine 20 mg 09/12/25 09:45 09/12/25 10:10 Famotidine/Pf 20 Mg/2 Ml Vial IVPUSH 09/12/25 09:46 20 mg ONCE ONE Administration Lactated Ringer's 1,000 mls @ 999 mls/hr 09/12/25 09:45 09/12/25 10:09 Lr IV 09/12/25 10:45 999 mls/hr .Q1H1M ONE Administration Ketorolac Tromethamine 15 mg 09/12/25 09:45 09/12/25 10:10 Ketorolac Tromethamine 15 Mg/Ml Vial IVPUSH 09/12/25 09:46 15 mg ONCE ONE Administration Ondansetron HCl 4 mg 09/12/25 09:45 09/12/25 10:10 Ondansetron Hcl 4 Mg/2 Ml Vial IVPUSH 09/12/25 09:46 4 mg ONCE ONE Administration Medical Decision Making Medical Decision Making [facility] Narrative: 24 yo female with PMH Of UTI, tendonitis here with c/o chest pains, vision changes when standing this week, sharp intermittent L side headache on exam she has no neuro deficits, she has no ACS risk factors, her abd exam is benign, she has distal pulses intact doubt dissection, she has no reason for dissection of vertebral arteries, she is PERC negative doubt VTE. She has multipe vague complaints. At this time labs, EKG, CT head for mass, CXR, trop x 1, pain control, pepcid/toradol/zofran Differential Diagnosis Differential Diagnoses: The differential diagnosis associated with the presentation includes gastritis, stress, chest wall pain, headaches Admission/Observation Consideration of admission/observation: Escalation of care including admission/observation considered work up reasssuring neg ortho VS stable for DC Lab Data [facility] Lab Attestation statement: I reviewed the patient's lab results. 09/12/25 08:59 09/12/25 08:59 Labs: Lab Results 09/12/25 09/12/25 Range/Units 08:59 09:02 WBC 7.6 (4.8-10.8) X10*3/uL RBC 4.35 (4.20-5.50) X10*6/uL Hgb 13.1 (12.0-16.0) g/dl Hct 39.3 (37.0-47.0) % MCV 90.3 (80.0-98.0) fL MCH 30.1 (27.0-33.0) pg MCHC 33.3 (31.0-35.0) g/dl RDW 12.5 (11.0-16.0) % Plt Count 202 (160-400) X10*3/uL MPV 11.9 (9.4-12.3) fL Immature Gran % (Auto) 0.1 (0.0-0.4) % Neut % (Auto) 58.4 (45-73) % Lymph % (Auto) 33.3 (20-40) % Robertson % (Auto) 7.0 (2-11) % Eos % (Auto) 0.9 (0-4) % Baso % (Auto) 0.3 (0-2) % Lymph # (Auto) 2.5 (1.2-4.9) X10*3/uL Robertson # (Auto) 0.5 (0.1-1.2) X10*3/uL Eos # (Auto) 0.1 (0.0-0.4) X10*3/uL Baso # (Auto) 0.0 (0.0-0.2) X10*3/uL Abs Immat Gran (auto) 0.01 (0.00-0.03) X10*3/uL Absolute Neuts (auto) 4.4 (2.0-8.3) x10*3/uL Absolute Nucleated RBC 0.000 (0.0-0.012) X10*3/uL Nucleated RBC % (auto) 0.0 (0.0-0.2) /100WBC Sodium 139 (135-145) mmol/L Potassium 4.0 (3.3-5.1) mmol/L Chloride 108 (96-108) mmol/L Carbon Dioxide 24 (22-29) mmol/L Anion Gap 11 L (12-20) BUN 17 H (9-16) mg/dL Creatinine 0.84 (0.5-1.4) mg/dL Estim Creat Clear Calc 136.2 Estimated GFR > 60 Random Glucose 93 (60-115) mg/dL Calcium 9.5 (8.4-10.2) mg/dL Total Bilirubin 0.3 (0.0-1.0) mg/dL AST 14 (5-31) U/L ALT 14 (0-31) U/L Alkaline Phosphatase 69 (39-117) U/L Troponin I High Sens < 2.7 (<3.5-17.0) ng/L Total Protein 7.6 (6.5-8.0) g/dL Albumin 4.7 (3.5-5.0) g/dL Urine Test NEGATIVE (NEGATIVE) Independent Interpretation I performed an independent interpretation of an: EKG, Plain X-Ray (normal ) and CT Scan (normal ) Interpretation: Rate: 79 Rhythm: NSR [place]: normal Normal P waves. Normal SHONDA. Normal QRS complex. ST T wave : inverted t waves V1 and III no RFAI qTC: 401 prior studies: no acute ischemia The study has been interpreted contemporaneously by me. . Radiology Impression Discussion of test interpretation with radiology: I have reviewed the radiologist's reading. External Record Review External record reviewed: Outpatient record Prescription Management I considered prescription management with: Other Discharge Plan Discharge Clinical Impression: Atypical chest pain, Dizziness Patient Disposition: Home, Self-Care Instructions: Chest Pain (ED), Dizziness (ED) Additional Instructions: blood pressure normal when standing labs reassuring, negative test normal electrocardiogram CT head normal chest xray normal rest and stay hydrated return for any worsening symptoms or concerns. Prescriptions: New famotidine [Pepcid] 20 mg tablet 20 mg PO DAILY PRN (Reason: abdominal discomfort) Qty: 30 2RF ondansetron 4 mg tablet,disintegrating 4 mg PO Q8H PRN (Reason: nausea and vomiting) Qty: 20 0RF No Action ibuprofen 600 mg tablet 600 mg PO Q8H PRN (Reason: fever or pain) Qty: 20 0RF acetaminophen [Tylenol] 325 mg capsule 650 mg PO Q6H PRN (Reason: fever or pain) Qty: 20 0RF amoxicillin 500 mg capsule 500 mg PO Q8H [id number] carb-vit K 18 mg iron-400 mcg-500 mg tablet 1 tab PO DAILY Stand Alone Forms: Work/School Release Print Language: German
[2025-09-12 09:29] VITALS: BP 127/81; PULSE 75; RESP 18; O2SAT 98
--- NOTE | 2025-09-12 09:35 | PC.NURSE ---
24 F presents to ED with Left top of head pain 8/10, central abdomen pain, n/v since yesterday and waking up with blurred vision x 1 week that clears after waking up. A+Ox4, calm, cooperative. RR even and unlabored. Pt denies CP or SOB at this time but sts becomes SOB at times and has had left sided chest pain. Pt is ambulatory.
[2025-09-12 10:06] VITALS: BP 113/75; PULSE 57
[2025-09-12 10:06] LABS: Troponin-I High Sensitivity < 2.7 ng/L (<3.5-17.0)
[2025-09-12 10:07] VITALS: BP 136/94; PULSE 77
[2025-09-12 10:08] VITALS: BP 142/102; PULSE 86
[2025-09-12] MEDS: Lactated Ringers 1,000 ML 999 ML IV (10:09)
--- OUTSIDE RECORDS SUMMARY | 2025-09-12 11:06 | XMS_ITS | Encounter Summary ---
Author Organization [facility] Address [address] [place] [address] Phone Care Team Providers Care Controls Design Engineer Name Role Phone Bessy Yost MD Primary Care Provider [phone] Encounter Details Date Type Department Care Team (Late st Contact Info) Description 07/06/2017 Conversion Encounter [facility] [place] [address] [place] [address] Social History Tobacco Use Types Packs/Day Years Used Date Smoking Tobacco: Never Assessed Comments Unknown Sex and Gender Information Value Date Recorded Sex Assigned at Not on file Legal Sex Female 4:25 PM EDT Gender Identity Not on file Sexual Orientation Not on file documented as of this encounter Plan of Treatment Not on file documented as of this encounter Visit Diagnoses Not on filedocumented in this encounter Care Teams Controls Design Engineer Relationship Specialty Start Date End Date Bessy Yost MD [address] [place] [address] PCP - General 06/30/17 03/02/23 documented as of this encounter
--- OUTSIDE RECORDS SUMMARY | 2025-09-12 11:06 | XMS_ITS | Clinical Summary ---
Author Organization [facility] Address [address] [place] [address] Care Team Providers Care Systems Test Engineer Name Role Phone Unavailable Primary Care Provider Unavailabl e Social History Tobacco Use Types Packs/Day Years Used Date Smoking Tobacco: Never Assessed Comments Unknown Sex and Gender Information Value Date Recorded Sex Assigned at Female 09/19/2022 10:24 AM EDT Legal Sex Female 10:24 AM EDT Gender Identity Female 05/12/2025 10:57 AM EDT Sexual Orientation Straight 05/12/2025 10 :57 AM EDT Plan of Treatment Health Maintenance Due Date Last Done Comments Chlamydia and Gonorrhea Screening 2002 Depression Screening 2002 HIV Screening 2002 SDOH Screening 2002 Disability Screening 2002 Alcohol/Substance Use Screening 2014 Tobacco Screening 2014 Family Planning (PISQ) 2017 HPV Vaccines (1 - 3-dose series) 2017 Meningococcal B Vaccine (1 o f 2 - Standard) 2018 Hepatitis C Screening 2020 DTaP/Tdap/Td Vaccines (1 - Tdap) 2021 Hepatitis B Vaccines (1 of 3 - 19+ 3-dose series) 2021 Pap Smear 2023 COVID-19 Vaccine (1 - 2023-2 5 season) 2025 Influenza Vaccine (#1) 2025 Zoster Vaccines (1 of 2) 2052 RSV Patients and Pa tients Aged 60 years or older (1 - 1-dose 75+ series) 2077 HIB Vaccines Aged Out No longer eligi ble based on patient's age to complete this topic Hepatitis A Vaccines Aged Out No long er eligible based on patient's age to complete this topic IPV Vaccines Aged Out No longer eligi ble based on patient's age to complete this topic Meningococcal Vaccine Aged Out No kian dao eligible based on patient's age to complete this topic Pneumococcal Vaccine: Pediat rics (0 to 5 Years) and At-Risk Patients (6 to 49) Years Aged Out No longer eligible b ased on patient's age to complete this topic RSV under 20 months Aged Out No longe r eligible based on patient's age to complete this topic Rotavirus Vaccines Aged Out No longer eligible based on patient's age to complete this topic Insurance [facility] [address] STANDARD
--- OUTSIDE RECORDS SUMMARY | 2025-09-12 11:06 | XMS_ITS | Clinical Summary ---
Author Organization [facility] Address [address] [place] [id number] Phone Care Team Providers Care Mold Maker Plaster Name Role Phone Unavailable Primary Care Provider [...] 2 - Standard) 2018 Influenza Vaccines (#1) 2025 08/04/2008 COVID-19 Vaccine ( season) 2025 Hepatitis B Vaccines Completed 12/29/2003, 08/25/2003, 2002 [...]
--- OUTSIDE RECORDS SUMMARY | 2025-09-12 11:06 | XMS_ITS | Clinical Summary ---
Author Organization [facility] [address] [facility] lding Address [address] [place] [address] Phone Care Team Providers Care Medical Lab Tech Instructor Name Role Phone Ivelisse Modi MD Primary Care Provider [phone] Allergies No known active allergies Medications ibuprofen (ADVIL,MOTRIN) 600 mg tablet Take 1 tablet (600 mg total) by mouth every 6 (six) hours if needed (Pain). for up to 30 days. 05/26/2023 Active norethindrone-e thinyl estradiol (JUNEL 12/09) 1 mg-20 mcg (21)/75 mg (7) per tabletIndicatio ns: control counseling Take 1 tablet by mouth 1 (one) time each day. 28 tablet 11 01/07/2025 01/06/20 26 Active triamcinolone (KENALOG) 0.025 % ointment Apply 3-4x/day to affected area 15 g 1 01/16/2025 Active fluconazole (DIFLUCAN) 150 mg tablet TAKE 1 TABLET (150 MG TOTAL) BY MOUTH 1 (ONE) TIME FOR 1 DOSE. TAKE ONE TAB REPEAT DOSE IN 3DAYS 01/17/2025 Active Active Problems Problem Noted Date Diagnosed Date Dental infection 05/04/2023 Overview (09/26/2024): Last Assessment & Plan: Seems to be spontaneously improving, but not resolved. I recommended that the patient see an Urgent Care dentist AILEEN. Given some community resources to contact. Also given Rx for Augmentin to take in the meantime to avoid infectious complications. Dizzy spells 05/03/2023 Overview (09/26/2024): Last Assessment & Plan: I counseled patient re: staying hydrated, standing and moving around slowly to avoid compression of major vessels with uterus, and also to avoid very hot showers. I encouraged her and her mother to have her present if she has these symptoms so we can evaluate her. I reassured her mother that her BP is normal here on repeat and throughout her . I instructed her on correct position and timing of BP check at home. She was reassured and agreed to check in this way and call if elevated. Epigastric pain 02/23/2023 Overview (09/26/2024): See 02/23/2023 note, patient was seen in [facility], report sent to scanning LFTs normal. Heart burn 02/08/2023 Overview (09/26/2024): Last Assessment & Plan: I increased the patient's famotidine to 40 BID and encouraged her to use Tums or Mylanta for breakthrough. Also encouraged to avoid triggers and eating within 2 hours before bed. Rash 01/11/2023 Overview (09/26/2024): 01/11/2023 Rash on right side of neck, started when she found out she was . Referral to derm ordered. Last Assessment & Plan: Resolved. Encouraged to consider folic acid and iron in place of PNV. Not clear this was the cause, but was so bothersome, reasonable to avoid restarting. Obesity due to excess calori es, unspecified obesity severity 06/25/2019 Overview (09/26/2024): Last Assessment & Plan: Continue weekly NST until delivery. No further growth scan as within the month of delivery, 64%ile Abdominal pain 02/28/2011 Overview (09/26/2024): Chronic , NL BM, mother and brother with history of H Pylori, celiac, will order tests 02/28, H Pylori neg 11/02/[address] Nguyen. abd pain, dysphagia, dyspeptic symptoms tril pf prilosec 20 mg 1/2 before breakfast, upper GI study, special diet Brother with hx of celiac dz, her celiac panel was neg 05/11/16 abdominal pain again, refer to gastroenterology N/S 8-19 less belly pain,Stools q 2-3 d restart miralax f/u 1m Last Assessment & Plan: 8- less belly pain,Stools q 2-3 d restart miralax f/u 1m Behavioral problem 09/07/2009 Overview (09/26/2024): Adhd? mother to bring vanderbilts Crying easily 3-4 a day for small things, thinks she is ugly and that others are making fun of her, history of been bullied. Mother to call and set appointment with counseling 03/13/12 no bulling at the moment, things improving, laxk of concentration hyper vanderbilts given to mother to make appointment when ready 04/18/13 vanderbilts neg, learning disorder? Doing bad at school mother to request IEP 05/05 bulling the past 2 years now much better, no mood issues, doing fine at school 8- stressed out and ocd behavior/ hums when stressed /around school issues interested in counseling/ref to Veronica Drew from [facility] Last Assessment & Plan: 8- stressed out and ocd behavior/ hums when stressed /around school issues interested in counseling/ref to Veronica Drew from [facility] Resolved Problems Problem Noted Date Diagnosed Date Resolved Date Pelvic cramping in antepartum period 05/03/2023 12/04/2024 Overview (09/26/2024): Last Assessment & Plan: No evidence of labor or infection. I explained this is likely the uterue preparing for labor. Stay hydrated and given labor precautions. Vaginal bleeding during 05/03/2023 12/04/2024 Overview (09/26/2024): Last Assessment & Plan: No obvious continued bleeding. Could be due to minimal cervical change. Positive GBS test 04/21/2023 12/04/2024 Overview (09/26/2024): Treat in labor Last Assessment & Plan: Treat in labor Excessive weight gain during in third trimester 04/20/2023 12/04/2024 Overview (09/26/2024): Last Assessment & Plan: Discussed weight gain in . Encouraged healthy diet and exercise. Immunizations Immunization Administration Dates Next Due DTaP (Infanrix) 6wks to less than 7yo ,06/29/2004,08/25/2003,05/30,03/12/2003 CSgL-DXR-HLE (Pentacel) 2mo to less than 5yo 06/29/2004,08/25/2003,05/30/2003,03/12 HPV 9-valent (Gardisil) 9yo to less than 46yo 01/17/2022,06/25/2019,04/03/2018 Hepatitis B Pediatric (Enger ix B; Recombivax HB) to less than 20 yo 12/29/2003,08/25/2003,2002 IPV Inactivated polio (Ipol) 6wks and older 06/11/2007,12/29/2003,05/30/2003,03/12 Influenza trivalent, with pr eservative (Fluzone; Afluria) 6mo and older 01/28/2014,09/16/2010,08/04/2008 MMR, measles mumps and rubel la Live (Priorix; M-M-R II) 12mo and older 06/11/2007,12/29/2003 Meningococcal MCV4P 06/25/2019,01/28/2014 PPD Test 12/16/2015 Pneumococcal Conjugate Vacci ne, 7 Valent 01/06/2005,08/25/2003,05/30/2003,03/12 Tdap Tetanus diptheria acell ular pertussis (Boostrix; Adacel) 7yo and older 02/23/2023,01/28/2014 Varicella live (Varivax) 12m o and older 02/28/2011,12/29/2003 Surgical History Surgery Date Site/Laterality Comments TONSILLECTOMY 10/06/2017 PROCEDURE: HISTORICAL TONSILLECTOMY; COMMENT: due to peritonsillar abscess. Medical History Medical History Date Comments Dental caries 04/13/2016 DX:Dental caries ; COMMENT: 04-04 seen in er NSAIDs/f/u dentistry 04-18-16 Tonsillar abscess 09/2017 DX:Tonsillar a bscess; COMMENT: s/p tonsillectomy Abdominal pain 02/28/2011 DX:Abdominal samantha n; COMMENT: Chronic , NL BM, mother and brother with history of H Pylori, celiac, will order tests 02/28, H Pylori neg 11/02/[address] Nguyen. abd pain, dysphagia, dyspeptic symptoms tril pf prilosec 20 mg 1/2 before breakfast, upper GI study, special diet Brother with hx of celiac dz, her celiac panel was neg 05/11/16 abdominal pain again, refer to gastroenterology Family History Medical History Relation Name Comments Breast cancer Aunt maternal Celiac disease Brother Crohn's disease Brother Other: epilepsy Father Other: myocardial infarction Father Lung cancer Maternal Grandfather Cataracts Maternal Grandmother Diabetes Maternal Grandmother Hypertension Maternal Grandmother Other: heart failure, lupus Maternal Grandmother Arthritis Mother Diabetes Mother Other: heart murmurs Mother Other: thyroid cancer Mother Ovarian cancer Mother Stroke Mother Other: thyroid CA Other great GM Cataracts Paternal Grandmother Dementia Paternal Grandmother Macular degeneration Paternal Grandmother Celiac disease Sister 1 Crohn's disease Sister 1 Thyroid cancer Sister 1 Celiac disease Sister 2 Crohn's disease Sister 2 Lymphoma Sister 2 Leukemia Sister 3 Rheum arthritis Sister 3 Blindness Uncle great Cataracts Uncle great Glaucoma Neg Hx Strabismus Neg Hx Relation Name Status Comments Aunt maternal Alive Brother Alive Father Alive Maternal Grandfather Maternal Grandmother Alive Mother Alive Other great GM Paternal Grandfather Paternal Grandmother Sister 1 Alive Sister 2 Alive Sister 3 Alive Uncle great Alive Social History Tobacco Use Types Packs/Day Years Used Date Smoking Tobacco: Never Smokeless Tobacco: Never Tobacco Cessation:Counseling Given: Not Answered Alcohol Use Standard Drinks/Week Comments No 0 (1 standard drink = 0.6 oz pur e alcohol) Comments No Sex and Gender Information Value Date Recorded Sex Assigned at Female 09/25/2024 10:22 AM EST Legal Sex Female 12:21 AM EST Gender Identity Female 09/25/2024 10:22 AM EST Sexual Orientation Straight 09/25/2024 10 :22 AM EST Obstetrics History Last Filed Vital Signs Vital Sign Reading Time Taken Comments Blood Pressure 102/66 01/16/2025 1:58 PM EST Pulse 92 01/16/2025 1:58 PM EST Temperature 36 C (96.8 F) 12/12/2024 1:16 PM EST Respiratory Rate 18 12/12/2024 1:16 PM EST Oxygen Saturation 98% 12/12/2024 1:16 PM EST Inhaled Oxygen Concentration - - Weight 124 kg (273 lb) 01/16/2025 1:58 PM EST Height 165.1 cm (5' 5 ) 12/12/2024 1:16 PM EST Body Mass Index 45.43 12/12/2024 1:16 PM EST Plan of Treatment Health Maintenance Due Date Last Done Comments Meningococcal B Vaccine (1 of 2 - Standard) 2018 HIV Screening 10/23/2022 Social Influencers of Health Screening 10/23/2022 Cervical Cancer Screening: Pap Smear 2023 Depression Screening 11/20/2024 10/21/2024 COVID-19 Vaccine ( season) 2025 06/01/2021 Influenza Vaccine (#1) 2025 , 01/28/2014, 09/16/2010, Additional history exists Gonorrhea/Chlamydia Screening 01/16/2026 01/16/2025, 12/04/2024, 11/04/2022 Cholesterol Screening (Lipid Panel) 12/12/2029 12/12/2024, 07/13/2018 DTaP,Tdap,and Td Vaccines (8 - Td or Tdap) 02/23/2033 02/23/2023, 01/28/2014, 06/11/2007, Additional history exists RSV Immunization Adult Patients (1 - 1-dose 75+ series) 2077 Hepatitis B Vaccines Completed 12/29/2003, 08/25/2003, 2002 HIB Vaccines Completed 06/29/2004, 06/20, 08/25/2003, Additional history exists Pneumococcal Vaccine: Pediatrics (0 to 5 Years) and At-Risk Patients (6 to 49 Years) Completed 01/06/2005, 08/25/2003, 05/30/2003, Additional history exists IPV Vaccines Completed 06/11/2007, 06/20, 12/29/2003, Additional history exists MMR Vaccines Completed 06/11/2007, 05/21, 12/29/2003 Varicella Vaccines Completed 02/28/2011, 0 06/11/2007, 12/29/2003 Meningococcal ACWY Vaccine Completed 06/25/2019, HPV Vaccines Completed 01/17/2022, 0804/2019, 04/03/2018 Hepatitis C Screening Completed 11/03/2022 Hepatitis A Vaccines Aged Out No long er eligible based on patient's age to complete this topic RSV Immunization Patients Under 20 months Aged Out No longer eligible based on patient's age to complete this topic Procedures Procedure Name Priority Date/Time Associated Diagnosis Comments CHLAMYDIA TRACHOMATIS AND NEISSERIA GONORRHOEAE PCR Routine 01/16/2025 2:17 PM EST Venereal disease screening LIPID PANEL WITH REFLEX TO DIRECT LDL Routine 12/12/2024 2:03 PM EST Encounter for screening for cardiovascular disorders HM HEPATITIS C SCREENING Routine 11/03/2022 from Last 3 Months or Most Recently Relevant to Health Maintenance Results * Chlamydia trachomatis and Neisseria gonorrhoeae molecular study (01/16/2025 2:17 PM EST) Neisseria gonorrhoeae PCR Negative Negative LAB MOLECULAR DIAGNOSTICS METHOD 01/17/2025 11:46 AM EST [facility] Chlamydia trachomatis PCR Negative Negative LAB MOLECULAR DIAGNOSTICS METHOD 01/17/2025 11:46 AM EST [facility] Swab Vaginal structure / Unknown Non-blood Collection / Unknown 01/16/2025 2:17 PM EST 01/16/2025 2:17 PM EST us Ramila Be CNM LAB MICROBIOLOGY - GENERAL OR DERABLES Final Result [facility] [address] [place] [address], [place] [phone] * Lipid panel with reflex to direct LDL (12/12/2024 2:03 PM EST) Cholesterol 149 0 - 200 mg/dL LAB CHEMISTRY METHOD 12/12/2024 4:17 PM EST [facility] Triglycerides 71 0 - 150 mg/dL LAB CHEMISTRY METHOD 12/12/2024 4:17 PM [facility] HDL 44 >=40 mg/dL LAB CHEMISTRY METHOD 12/12/2024 4:17 PM EST [facility] LDL Calculated 91 0 - 100 mg/dL LAB CHEMISTRY METHOD 12/12/2024 4:17 PM EST [facility] VLDL Cholesterol Mark Anthony 14.2 mg/dL LAB CHEMISTRY METHOD 12/12/2024 4:17 PM [facility] Non HDL Chol. (LDL+VLDL) 105 <145 mg/dL LAB CHEMISTRY METHOD 12/12/2024 4:17 PM [facility] Chol/HDL Ratio 3.4 0.0 - 4.4 LAB CHEMISTRY METHOD 12/12/2024 4:17 PM [facility] Blood Venous blood specimen / Unknown Venipuncture / Unknown 12/12/2024 2:03 PM EST 12/12/2024 2:03 PM EST Natty [facility] LAB BLOOD ORDERABLES Final Res ult [facility] [address] [place] [address], * Hepatitis C Screening (11/03/2022) Hepatitis C Screening Abstracted Historical Provider HEALTH MAINTENANCE Final Result from Last 3 Months or Most Recently Relevant to Health Maintenance Insurance [facility] MEDICAID ADVANTAGE Care Teams Medical Lab Tech Instructor Relationship Specialty Start Date End Date Ivelisse Modi MD [address] [place] [phone] PCP - General 02/03/23
[2025-09-12 12:06] VITALS: BP 142/102; PULSE 86; RESP 16; TEMP 36.8; O2SAT 95
== END 2025-09-12 12:07 | disposition home or self-care (01) ==
PROVIDERS: Emergency Provider Emergency Medicine; PCP Registered Nurse
DX: R07.89 Other chest pain (principal); R42 Dizziness and giddiness; R11.10 Vomiting, unspecified; R51.9 Headache, unspecified
CPT/HCPCS: 36415; 70450; 71045; 80053; 81025; 84484; 85025; 93005; 96361; 96374; 96375; 99284; 99285; J1308; J1885; J2405; J7120

== ENCOUNTER → 2025-09-12 08:38 | Outpatient (BNV) | payer OTHER, SELFPAY | PROVIDERS: Emergency Provider Emergency Medicine; PCP Registered Nurse; Visit Provider Internal Medicine Cardiovascular Disease | DX: R07.9 Chest pain, unspecified (principal) | CPT/HCPCS: 93010 ==

== ENCOUNTER → 2025-09-12 09:45 | Outpatient (BNV) | payer OTHER, SELFPAY | PROVIDERS: Emergency Provider Emergency Medicine; PCP Registered Nurse; Visit Provider Radiology Diagnostic Radiology | DX: R51.9 Headache, unspecified (principal); R07.9 Chest pain, unspecified | CPT/HCPCS: 70450; 71045 ==

== ENCOUNTER 2025-10-08 08:49 | Emergency (ER) | payer OTHER, SELFPAY ==
--- NOTE | ~2025-10-08 | XR_ITS ---
EXAMINATION: XR ABDOMEN KUB CLINICAL INDICATION: left abd pain, ?constipated COMPARISON: None available. TECHNIQUE: AP view of the abdomen. FINDINGS: Mild constipation. No dilated loops of bowel to suggest obstruction. No free air. No calcifications. Bony structures are normal. XR/XR KUB IMPRESSION: Mild constipation. Electronically signed by: Lucila Contreras MD 10/08/2025 09:52 AM [facility]
--- NOTE | ~2025-10-08 | CT_ITS ---
EXAMINATION: CT ABDOMEN PELVIS WITHOUT IV CONTRAST HISTORY: left sided abd pain COMPARISON: There are no prior studies available for comparison. TECHNIQUE: CT scan of the abdomen and pelvis was performed without contrast using standard departmental protocol. Coronal and sagittal reformatted images were generated and reviewed. Oral contrast material was not administered at the request of the referring physician. This CT exam was performed with one or more of the following dose reduction techniques: automated exposure control, adjustment of the mA and/or kV according to patient size, use of iterative reconstruction technique. DLP: 712 mGy-cm FINDINGS: LOWER CHEST: The visualized lung bases are clear. There is no pleural effusion. CARDIOVASCULATURE: The heart is normal in size. There is no pericardial effusion. LIVER: The liver is normal in size and contour. The liver has an unremarkable unenhanced appearance. GALLBLADDER / BILE DUCTS: The gallbladder is unremarkable. There is no intra or extrahepatic biliary ductal dilatation. SPLEEN: The spleen is normal in size and has an unremarkable unenhanced appearance. PANCREAS: The pancreas has an unremarkable unenhanced appearance. ADRENAL GLANDS: Unremarkable. KIDNEYS/RETROPERITONEUM: No renal calculi are identified. There is no hydronephrosis. LYMPH NODES: No retroperitoneal lymphadenopathy is identified in the abdomen or pelvis. VASCULATURE: The abdominal aorta is normal in caliber. MESENTERY/PERITONEUM: No free fluid. No masses. There is no free intraperitoneal gas. STOMACH: The stomach is collapsed, limiting evaluation. SMALL BOWEL: The small bowel is normal in caliber. COLON: The colon is unremarkable. APPENDIX: Normal. URINARY BLADDER/PELVIC ORGANS: The urinary bladder is unremarkable. The uterus and ovaries have an unremarkable unenhanced appearance. BONES / SOFT TISSUES: No suspicious bony or soft tissue abnormalities. CT/CT abdomen pelvis wo IV con IMPRESSION: Unremarkable unenhanced CT of the abdomen and pelvis. Electronically signed by: Dontae Graham MD 10/08/2025 12:55 PM EST
[2025-10-08 08:52] VITALS: BP 134/62; PULSE 75; RESP 18; TEMP 36.2; O2SAT 96; BMI 44.7
--- NOTE | 2025-10-08 09:38 | ED_ITS ---
HPI - Abdominal Pain General Chief Complaint: Abdominal Pain Stated Complaint: abd pain w/ back pain Time Seen by Provider: 10/08/25 09:13 Source: patient Mode of arrival: ambulatory Limitations: no limitations History of Present Illness ED Provider: DANIELLE THORNTON PA-C HPI narrative: 24 year old female presents to the ED today for evaluation of left upper quadrant abdominal pain x3 weeks. Reports pain and nausea associated with eating. Denies vomiting. Endorses normal BMs daily. Admits to occasional difficulty urinating. Denies dysuria, hematuria. Denies fever, chills. Related Data Home Medications ?Medication ?Instructions ?Recorded ?Confirmed amoxicillin 500 mg capsule 500 mg PO Q8H 09/10/25 fojahyxo-oqr-cnrr-FA-Ca carb-vit K 1 tab PO DAILY 08/21 01/14 18 mg iron-400 mcg-500 mg tablet Previous Rx's ?Medication ?Instructions ?Recorded ibuprofen 600 mg tablet 600 mg PO Q8H PRN fever or p ain 09/13/20 #20 tabs acetaminophen 325 mg capsule 650 mg (2 x 325 mg) PO Q6 H PRN 05/24/21 (Tylenol) fever or pain #20 caps famotidine 20 mg tablet (Pepcid) 20 mg PO DAILY PRN ab dominal 09/12/25 discomfort #30 tabs ondansetron 4 mg disintegrating 4 mg PO Q8H PRN nausea and 09/12/25 tablet vomiting #20 tabs nitrofurantoin 100 mg PO BID 5 days #10 cap s 10/08/25 monohydrate/macrocrystals 100 mg capsule (Macrobid) pantoprazole 20 mg tablet,delayed 20 mg PO DAILY 4 wee ks #28 tabs 10/08/25 release Allergies Allergy/AdvReac Type Severity Reaction Status Date / Time No Known Allergies (No Known Allergy Verified 10/08/25 08:55 Allergies*) Review of Systems Review of Systems Yes all other systems are reviewed and are negative PMFSH Past Medical History Attestation statement: The following information was validated with the patient. 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 Skin: Warm, dry, intact. No rashes or lesions. Head: Normocephalic, atraumatic. EENT: Hearing is intact b/l. Conjunctiva clear. Sclera is anicteric. PERRLA. EOM intact. Moist mucous membranes.? Neck: Supple without LAD Cardiac: Chest wall symmetric. RRR Lungs: Normal respiratory effort without accessory muscle use. CTA bilaterally Abdomen: obese, soft, non-tender, non-distended. No rebound tenderness or guarding. Positive BS x4. no cvat. Back: No midline spinous or paraspinal tenderness. No step off deformity. Ext: Upper and lower extremities atraumatic, without tenderness, deformity, swelling or erythema Neuro: AOx3. Normal speech. Ambulating with steady gait. Course Course Course Narrative: cbc without leukocytosis or left shift. No anemia, H and H stable. Chemistry without acute electrolyte abnormality requiring intervention. No MARIO. Liver function and lipase WNL. Beta quant undetectable. Urine with mild infection - will start on Macrobid. KUB showing constipation, no bowel obstruction. CT a/p unreamrkable > patient treated with GI cocktail with improvement in symptoms. Likely gastritis versus PUD. Will discharge home on pantoprazole with GI follow up. Patient has remained stable throughout ED visit today. Discussed worrisome signs and symptoms and when to return to the ED. All questions answered at this time. Patient is agreeable with disposition and stable for discharge. Medical Decision Making Medical Decision Making MDM Narrative: 24 year old female presents to the ED today for evaluation of left upper quadrant abdominal pain x3 weeks. Vital signs stable, afebrile. She is well- appearing, in no acute distress. Abdominal exam benign. No CVAT. Differential diagnosis includes biliary colic, gastroenteritis, gastritis, PUD. Abdominal exam without peritoneal signs. No evidence of acute abdomen at this time. Well appearing. Moderate suspicion for acute hepatobiliary disease (including acute cholecystitis). Less likely to represent acute pancreatitis, perforated ulcer/ GI bleed, acute infectious processes (pneumonia, hepatitis, pyelonephritis), atypical appendicitis, vascular catastrophe, bowel obstruction or viscus perforation. Presentation not consistent with other acute, emergent causes of abdominal pain at this time. Plan for labs, UA, imaging, GI cocktail, re-evaluation Differential Diagnosis Differential Diagnoses: The differential diagnosis associated with the presentation includes as above. Admission/Observation not indicated. Lab Data [facility] Lab Attestation statement: I reviewed the patient's lab results. as above. 10/08/25 09:34 10/08/25 09:34 Labs: Lab Results 10/08/25 10/08/25 10/08/25 Range/Units 09:34 09:34 09:34 WBC 6.5 (4.8-10.8) X10*3/uL RBC 4.31 (4.20-5.50) X10*6/uL Hgb 12.8 (12.0-16.0) g/dl Hct 39.1 (37.0-47.0) % MCV 90.7 (80.0-98.0) fL MCH 29.7 (27.0-33.0) pg MCHC 32.7 (31.0-35.0) g/dl RDW 12.6 (11.0-16.0) % Plt Count 174 (160-400) X10*3/uL MPV 11.9 (9.4-12.3) fL Immature Gran % (Auto) 0.3 (0.0-0.4) % Neut % (Auto) 57.7 (45-73) % Lymph % (Auto) 32.5 (20-40) % [place] % (Auto) 8.5 (2-11) % Eos % (Auto) 0.8 (0-4) % Baso % (Auto) 0.2 (0-2) % Lymph # (Auto) 2.1 (1.2-4.9) X10*3/uL [place] # (Auto) 0.6 (0.1-1.2) X10*3/uL Eos # (Auto) 0.1 (0.0-0.4) X10*3/uL Baso # (Auto) 0.0 (0.0-0.2) X10*3/uL Abs Immat Gran (auto) 0.02 (0.00-0.03) X10*3/uL Absolute Neuts (auto) 3.7 (2.0-8.3) x10*3/uL Absolute Nucleated RBC 0.000 (0.0-0.012) X10*3/uL Nucleated RBC % (auto) 0.0 (0.0-0.2) /100WBC Sodium 138 (135-145) mmol/L Potassium 3.4 (3.3-5.1) mmol/L Chloride 108 (96-108) mmol/L Carbon Dioxide 25 (22-29) mmol/L Anion Gap 8 L (12-20) BUN 14 (9-16) mg/dL Creatinine 0.80 (0.5-1.4) mg/dL Estim Creat Clear Calc 144.3 Estimated GFR > 60 Random Glucose 102 (60-115) mg/dL Calcium 9.0 (8.4-10.2) mg/dL Total Bilirubin 0.3 0.3 (0.0-1.0) mg/dL Direct Bilirubin 0.1 (0.0-0.5) mg/dL AST 18 16 (5-31) U/L ALT 12 (0-31) U/L Alkaline Phosphatase (39-117) U/L Total Protein (6.5-8.0) g/dL Albumin (3.5-5.0) g/dL Lipase (8-78) U/L Beta HCG, Quant mIU/mL Urine Color Urine Appearance Urine pH (5.0-9.0) Ur Specific [place] (1.005-1.025) Urine Protein (Neg-Trace) mg/dL Urine Glucose (UA) (Negative) mg/dL Urine Ketones (Negative) mg/dL Urine Blood (Negative) Urine Nitrite (Negative) Ur Leukocyte Esterase (Negative) Urine RBC (0-2) /HPF Urine WBC (0-5) /HPF Ur Squamous Epith Cells (0-2) /HPF Urine Bacteria (None Seen) Hyaline Casts (0-2) /LPF 10/08/25 10/08/25 10/08/25 Range/Units 09:34 09:34 09:34 WBC (4.8-10.8) X10*3/uL RBC (4.20-5.50) X10*6/uL Hgb (12.0-16.0) g/dl Hct (37.0-47.0) % MCV (80.0-98.0) fL MCH (27.0-33.0) pg MCHC (31.0-35.0) g/dl RDW (11.0-16.0) % Plt Count (160-400) X10*3/uL MPV (9.4-12.3) fL Immature Gran % (Auto) (0.0-0.4) % Neut % (Auto) (45-73) % Lymph % (Auto) (20-40) % [place] % (Auto) (2-11) % Eos % (Auto) (0-4) % Baso % (Auto) (0-2) % Lymph # (Auto) (1.2-4.9) X10*3/uL [place] # (Auto) (0.1-1.2) X10*3/uL Eos # (Auto) (0.0-0.4) X10*3/uL Baso # (Auto) (0.0-0.2) X10*3/uL Abs Immat Gran (auto) (0.00-0.03) X10*3/uL Absolute Neuts (auto) (2.0-8.3) x10*3/uL Absolute Nucleated RBC (0.0-0.012) X10*3/uL Nucleated RBC % (auto) (0.0-0.2) /100WBC Sodium (135-145) mmol/L Potassium (3.3-5.1) mmol/L Chloride (96-108) mmol/L Carbon Dioxide (22-29) mmol/L Anion Gap (12-20) BUN (9-16) mg/dL Creatinine (0.5-1.4) mg/dL Estim Creat Clear Calc Estimated GFR Random Glucose (60-115) mg/dL Calcium (8.4-10.2) mg/dL Total Bilirubin (0.0-1.0) mg/dL Direct Bilirubin (0.0-0.5) mg/dL AST (5-31) U/L ALT 12 (0-31) U/L Alkaline Phosphatase 62 61 (39-117) U/L Total Protein 6.9 7.0 (6.5-8.0) g/dL Albumin 4.3 (3.5-5.0) g/dL Lipase (8-78) U/L Beta HCG, Quant mIU/mL Urine Color Urine Appearance Urine pH (5.0-9.0) Ur Specific [place] (1.005-1.025) Urine Protein (Neg-Trace) mg/dL Urine Glucose (UA) (Negative) mg/dL Urine Ketones (Negative) mg/dL Urine Blood (Negative) Urine Nitrite (Negative) Ur Leukocyte Esterase (Negative) Urine RBC (0-2) /HPF Urine WBC (0-5) /HPF Ur Squamous Epith Cells (0-2) /HPF Urine Bacteria (None Seen) Hyaline Casts (0-2) /LPF 10/08/25 10/08/25 Range/Units 09:34 11:26 WBC (4.8-10.8) X10*3/uL RBC (4.20-5.50) X10*6/uL Hgb (12.0-16.0) g/dl Hct (37.0-47.0) % MCV (80.0-98.0) fL MCH (27.0-33.0) pg MCHC (31.0-35.0) g/dl RDW (11.0-16.0) % Plt Count (160-400) X10*3/uL MPV (9.4-12.3) fL Immature Gran % (Auto) (0.0-0.4) % Neut % (Auto) (45-73) % Lymph % (Auto) (20-40) % [place] % (Auto) (2-11) % Eos % (Auto) (0-4) % Baso % (Auto) (0-2) % Lymph # (Auto) (1.2-4.9) X10*3/uL [place] # (Auto) (0.1-1.2) X10*3/uL Eos # (Auto) (0.0-0.4) X10*3/uL Baso # (Auto) (0.0-0.2) X10*3/uL Abs Immat Gran (auto) (0.00-0.03) X10*3/uL Absolute Neuts (auto) (2.0-8.3) x10*3/uL Absolute Nucleated RBC (0.0-0.012) X10*3/uL Nucleated RBC % (auto) (0.0-0.2) /100WBC Sodium (135-145) mmol/L Potassium (3.3-5.1) mmol/L Chloride (96-108) mmol/L Carbon Dioxide (22-29) mmol/L Anion Gap (12-20) BUN (9-16) mg/dL Creatinine (0.5-1.4) mg/dL Estim Creat Clear Calc Estimated GFR Random Glucose (60-115) mg/dL Calcium (8.4-10.2) mg/dL Total Bilirubin (0.0-1.0) mg/dL Direct Bilirubin (0.0-0.5) mg/dL AST (5-31) U/L ALT (0-31) U/L Alkaline Phosphatase (39-117) U/L Total Protein (6.5-8.0) g/dL Albumin 4.3 (3.5-5.0) g/dL Lipase 22 (8-78) U/L Beta HCG, Quant < 2 mIU/mL Urine Color Yellow Urine Appearance Clear Urine pH 6.0 (5.0-9.0) Ur Specific [place] 1.020 (1.005-1.025) Urine Protein Negative (Neg-Trace) mg/dL Urine Glucose (UA) Negative (Negative) mg/dL Urine Ketones Negative (Negative) mg/dL Urine Blood Negative (Negative) Urine Nitrite Negative (Negative) Ur Leukocyte Esterase Small (1+) H (Negative) Urine RBC 0-2 (0-2) /HPF Urine WBC 0-5 (0-5) /HPF Ur Squamous Epith Cells 6-10 (0-2) /HPF Urine Bacteria 3+ (None Seen) Hyaline Casts 0-2 (0-2) /LPF Independent Interpretation I performed an independent interpretation of an: Plain X-Ray and CT Scan Interpretation: KUB without bowel obstruction CT a/p without bowel obstruction Radiology Impression Discussion of test interpretation with radiology: I have reviewed the radiologist's reading. Radiologist Impression: Procedure(s): CT abdomen pelvis wo IV con Accession Number(s): [id number] cc: Sneha MarieP; Danielle Thornton~ Report Number: [id number]: Total DLP = 0.00 mGy-cm Reason for Exam: left sided abd pain EXAMINATION: CT ABDOMEN PELVIS WITHOUT IV CONTRAST HISTORY: left sided abd pain COMPARISON: There are no prior studies available for comparison. TECHNIQUE: CT scan of the abdomen and pelvis was performed without contrast using standard departmental protocol. Coronal and sagittal reformatted images were generated and reviewed. Oral contrast material was not administered at the request of the referring physician. This CT exam was performed with one or more of the following dose reduction techniques: automated exposure control, adjustment of the mA and/or kV according to patient size, use of iterative reconstruction technique. DLP: 712 mGy-cm FINDINGS: LOWER CHEST: The visualized lung bases are clear. There is no pleural effusion. CARDIOVASCULATURE: The heart is normal in size. There is no pericardial effusion. LIVER: The liver is normal in size and contour. The liver has an unremarkable unenhanced appearance. GALLBLADDER / BILE DUCTS: The gallbladder is unremarkable. There is no intra or extrahepatic biliary ductal dilatation. SPLEEN: The spleen is normal in size and has an unremarkable unenhanced appearance. PANCREAS: The pancreas has an unremarkable unenhanced appearance. ADRENAL GLANDS: Unremarkable. KIDNEYS/RETROPERITONEUM: No renal calculi are identified. There is no hydronephrosis. LYMPH NODES: No retroperitoneal lymphadenopathy is identified in the abdomen or pelvis. VASCULATURE: The abdominal aorta is normal in caliber. MESENTERY/PERITONEUM: No free fluid. No masses. There is no free intraperitoneal gas. STOMACH: The stomach is collapsed, limiting evaluation. SMALL BOWEL: The small bowel is normal in caliber. COLON: The colon is unremarkable. APPENDIX: Normal. URINARY BLADDER/PELVIC ORGANS: The urinary bladder is unremarkable. The uterus and ovaries have an unremarkable unenhanced appearance. BONES / SOFT TISSUES: No suspicious bony or soft tissue abnormalities. CT/CT abdomen pelvis wo IV con IMPRESSION: Unremarkable unenhanced CT of the abdomen and pelvis. Electronically signed by: Dontae Graham MD 10/08/2025 12:55 PM EST RP Procedure(s): XR KUB Accession Number(s): [id number] cc: Sneha Marie; Danielle Thornton~ Reason for Exam: left abd pain, ?constipated EXAMINATION: XR ABDOMEN KUB CLINICAL INDICATION: left abd pain, ?constipated COMPARISON: None available. TECHNIQUE: AP view of the abdomen. FINDINGS: Mild constipation. No dilated loops of bowel to suggest obstruction. No free air. No calcifications. Bony structures are normal. XR/XR KUB IMPRESSION: Mild constipation. Electronically signed by: Lucila Contreras MD 10/08/2025 09:52 AM EST RP External Record Review External record reviewed: Inpatient record Prescription Management I considered prescription management with: Antibiotic and Other (pantoprazole) Social Determinants Patient?s care significantly limited by Social Determinants of Health including: Other Social Determinant of Health Medications Administered Discontinued Medications Generic Name Dose Route Start Last Admin Trade Name Freq PRN Reason Stop Dose Admin Al Hydroxide/Mg Hydroxide 30 ml 10/08/25 09:29 10/08/25 10:32 Magnesium Hydrox/Alum Hydrox 30 Ml Oral.Susp PO 10/08/25 09:30 30 ml ONCE ONE Administration Belladonna Alkaloids/Phenobarbital 10 ml 10/08/25 09:29 10/08/25 10:31 Phenobarb/Hyoscy/Atropine/Scop 10 Ml Elixir PO 10/08/25 09:30 10 ml ONCE ONE Administration Ondansetron HCl 4 mg 10/08/25 09:29 10/08/25 10:31 Ondansetron Odt 4 Mg Tab.Rapdis TRANSLINGU 10/08/25 09:30 4 mg ONCE ONE Administration Critical Care Time Critical Care Time Critical Care Time: No Discharge Plan Discharge Clinical Impression: Abdominal pain, Constipation, UTI (urinary tract infection) Patient Disposition: Home, Self-Care Instructions: Constipation (DC), Urinary Tract Infection in Women (DC), Abdominal Pain (ED) Additional Instructions: You were evaluated in the ED today for abdominal pain. Your blood work is reassuring. Your urine shows a mild urinary tract infection. The CT scan of your abdomen does not reveal any acute pathology. The x-ray of your abdomen shows mild constipation. I have suspicion that your upper abdominal pain is caused by gastritis v gastric ulcer. I am starting you on pantoprazole daily. Take this as prescribed. I recommend using stool softeners such as colace 100 mg twice daily. In addition, take over the counter miralax 2-3 times daily until you begin having multiple large volume bowel movements. I am also starting you on Macrobid for your UTI. Take this as prescribed twice daily. Follow up with your primary care provider. Return with any new or worsening symptoms. In the case of an emergency call 911. Prescriptions: New pantoprazole 20 mg tablet,delayed release (DR/EC) 20 mg PO DAILY 28 Days Qty: 28 0RF nitrofurantoin monohyd/m-cryst [Macrobid] 100 mg capsule 100 mg PO BID 5 Days Qty: 10 0RF Rx Instructions: must administer with a meal/food No Action ibuprofen 600 mg tablet 600 mg PO Q8H PRN (Reason: fever or pain) Qty: 20 0RF acetaminophen [Tylenol] 325 mg capsule 650 mg PO Q6H PRN (Reason: fever or pain) Qty: 20 0RF famotidine [Pepcid] 20 mg tablet 20 mg PO DAILY PRN (Reason: abdominal discomfort) Qty: 30 2RF ondansetron 4 mg tablet,disintegrating 4 mg PO Q8H PRN (Reason: nausea and vomiting) Qty: 20 0RF amoxicillin 500 mg capsule 500 mg PO Q8H rv-ni-rrmm-FA-Ca carb-vit K 18 mg iron-400 mcg-500 mg tablet 1 tab PO DAILY Referrals: Sneha Marie FNP [Primary Care Provider, Primary Care] Interventions: ED Discharge Assessment Last Done: 10/08/25 14:36 Discharge Date/Time: 10/08/25 14:36 Print Language: Yakut
[2025-10-08 09:40] LABS: MANUAL DIFF FLAG NO
--- NOTE | 2025-10-08 09:40 | PC.NURSE ---
patient a&ox3, iv inserted, labs drawn, rr equal/non labore, pt c/o luq pain 03/29, pt aware we need urine, call olivo within reach, plan of care ongoing
[2025-10-08 09:41] LABS: Hematocrit 39.1 % (37.0-47.0); Hemoglobin 12.8 g/dl (12.0-16.0); Imm Gran Abs Auto 0.02 X10*3/uL (0.00-0.03); Imm Gran Pct Auto 0.3 % (0.0-0.4); Lymphocytes Absolute Auto 2.1 X10*3/uL (1.2-4.9); Mean Corpuscular HGB Conc 32.7 g/dl (31.0-35.0); Mean Corpuscular Hemoglobin 29.7 pg (27.0-33.0); Mean Corpuscular Volume 90.7 fL (80.0-98.0); NRBC Abs Auto 0.000 X10*3/uL (0.0-0.012); NRBC Pct Auto 0.0 /100WBC (0.0-0.2); Platelet Count 174 X10*3/uL (160-400); Red Blood Count 4.31 X10*6/uL (4.20-5.50); White Blood Count 6.5 X10*3/uL (4.8-10.8)
[2025-10-08 10:02] LABS: Alanine Aminotransferase 12 U/L (0-31); Albumin Level 4.3 g/dL (3.5-5.0); Alkaline Phosphatase 61 U/L (39-117); Aspartate Amino Transferase 16 U/L (5-31); Lipase 22 U/L (8-78); Total Protein 7.0 g/dL (6.5-8.0)
[2025-10-08 10:03] LABS: Alanine Aminotransferase 12 U/L (0-31); Albumin Level 4.3 g/dL (3.5-5.0); Alkaline Phosphatase 62 U/L (39-117); Anion Gap 8 (12-20); Aspartate Amino Transferase 18 U/L (5-31); Blood Urea Nitrogen 14 mg/dL (9-16); Calcium 9.0 mg/dL (8.4-10.2); Carbon Dioxide 25 mmol/L (22-29); Chloride 108 mmol/L (96-108); Creatinine Clr Calc Pharmacy 144.3; Estimated Glomerular Filt Rate > 60; Potassium 3.4 mmol/L (3.3-5.1); Sodium 138 mmol/L (135-145); Total Protein 6.9 g/dL (6.5-8.0)
[2025-10-08] MEDS: PHENobarb/Hyoscy/Atropine/Scop 10 ML ELIXIR PO (10:31)
[2025-10-08] MEDS: Magnesium Hydrox/Alum Hydrox 30 ML ORAL.SUSP PO (10:32)
--- NOTE | 2025-10-08 10:40 | PC.NURSE ---
pt medicated per order
[2025-10-08 11:35] LABS: Appearance Urine Clear; Glucose Urine UA Negative (Negative); PH 6.0 (5.0-9.0); Specific Gravity - Urine 1.020 (1.005-1.025); UMIC TRIGGER UACC YES
[2025-10-08 12:05] LABS: UACC Culture Trigger YES
[2025-10-08 14:00] VITALS: BP 113/52; PULSE 62; RESP 18; TEMP 36.5; O2SAT 98
[2025-10-08 14:36] VITALS: BP 113/52; PULSE 62; RESP 18; TEMP 36.5; O2SAT 98
--- OUTSIDE RECORDS SUMMARY | 2025-10-08 17:11 | XMS_ITS | Clinical Summary ---
Author Organization [facility] [address] [facility] lding Address [address] [place] [address] Phone Care Team Providers Care Baby Doctor Name Role Phone Ivelisse Modi MD Primary Care Provider Allergies No known active allergies Medications ibuprofen [...] interested in counseling/ref to Veronica Drew from [facility] Last Assessment & Plan: 10- stressed out and ocd behavior/ hums when stressed /around school issues interested in counseling/ref to Veronica Drew from [facility] Resolved Problems Problem Noted Date Diagnosed Date [...] (Infanrix) 6wks to less than 7yo ,06/29/2004,08/25/2003,05/30,03/12/2003 [id number] (Pentacel) 2mo to less than 5yo 06/29/2004,08/25/2003,05/30/2003,03/12 [...] MOLECULAR DIAGNOSTICS METHOD 01/17/2025 11:46 AM EST [facility] Chlamydia trachomatis PCR Negative Negative LAB MOLECULAR DIAGNOSTICS METHOD 01/17/2025 11:46 AM EST [facility] Swab Vaginal structure / Unknown Non-blood Collection / Unknown 01/16/2025 2:17 PM EST 01/16/2025 2:17 PM EST us Ramila Be CNM LAB MICROBIOLOGY - GENERAL OR DERABLES Final Result [facility] [address] [place] [address], [place] [phone] * Lipid panel with reflex to direct LDL (12/12/2024 2:03 PM EST) Cholesterol 149 0 - 200 mg/dL LAB CHEMISTRY METHOD 12/12/2024 4:17 PM EST [facility] Triglycerides 71 0 - 150 mg/dL LAB CHEMISTRY METHOD 12/12/2024 4:17 PM [facility] HDL 44 >=40 mg/dL LAB CHEMISTRY METHOD 12/12/2024 4:17 PM EST [facility] LDL Calculated 91 0 - 100 mg/dL LAB CHEMISTRY METHOD 12/12/2024 4:17 PM EST [facility] VLDL Cholesterol Mark Anthony 14.2 mg/dL LAB CHEMISTRY METHOD 12/12/2024 4:17 PM [facility] Non HDL Chol. (LDL+VLDL) 105 <145 mg/dL LAB CHEMISTRY METHOD 12/12/2024 4:17 PM [facility] Chol/HDL Ratio 3.4 0.0 - 4.4 LAB CHEMISTRY METHOD 12/12/2024 4:17 PM [facility] Blood Venous blood specimen / Unknown Venipuncture / Unknown 12/12/2024 2:03 PM EST 12/12/2024 2:03 PM EST [facility] LAB BLOOD ORDERABLES Final Res ult [facility] [address] [place] [address], * Hepatitis C Screening (11/03/2022) Hepatitis C Screening Abstracted Historical Provider HEALTH MAINTENANCE Final Result from Last 3 Months or Most Recently Relevant to Health Maintenance Insurance [facility] MEDICAID ADVANTAGE Care Teams Baby Doctor Relationship Specialty Start Date End Date Ivelisse Modi MD [address] [place] [phone] PCP - General 02/03/23
--- OUTSIDE RECORDS SUMMARY | 2025-10-08 17:11 | XMS_ITS | Encounter Summary ---
Author Organization [facility] Address [address] [place] [address] Phone Care Team Providers Care Unclaimed Property Officer Name Role Phone Bessy Yost MD Primary Care Provider [phone] Encounter Details Date Type Department Care Team (Late st Contact Info) Description 07/06/2017 Conversion Encounter [facility] [place] [address] [place] [address] Social History Tobacco Use Types Packs/Day Years [...] on filedocumented in this encounter Care Teams Unclaimed Property Officer Relationship Specialty Start Date End Date Bessy Yost MD [address] [place] [id number] PCP - General 06/30/17 03/02/23 documented as of this encounter
--- OUTSIDE RECORDS SUMMARY | 2025-10-08 17:11 | XMS_ITS | Clinical Summary ---
Author Organization [email or web address] Address [address] [facility] [address] [place] [address] Care Team Providers Care Plant Hr Manager Name Role Phone Unavailable Primary Care Provider [...] Pap Smear 2023 COVID-19 Vaccine (1 - 2024-2 6 season) 2025 Influenza Vaccine (#1) 2025 Zoster [...] patient's age to complete this topic Insurance [facility] ST[facility]ARD
--- OUTSIDE RECORDS SUMMARY | 2025-10-08 17:11 | XMS_ITS | Clinical Summary ---
Author Organization [facility] Address [address] [place] [phone] Phone Care Team Providers Care Director Operations Broadcast Name Role Phone Unavailable Primary Care Provider [...]
== END 2025-10-08 14:36 | disposition home or self-care (01) ==
PROVIDERS: Physician Assistant Medical; Emergency Provider Emergency Medicine; PCP Registered Nurse
DX: R10.12 Left upper quadrant pain (principal); K59.00 Constipation, unspecified; N39.0 Urinary tract infection, site not specified; R11.0 Nausea
CPT/HCPCS: 36415; 74018; 74176; 80053; 80076; 81001; 82248; 83690; 84702; 85025; 87086; 99284

== ENCOUNTER → 2025-10-08 09:28 | Outpatient (BNV) | payer OTHER, SELFPAY | PROVIDERS: Emergency Provider Emergency Medicine; PCP Registered Nurse; Visit Provider Radiology Diagnostic Radiology | DX: R10.9 Unspecified abdominal pain (principal); K59.00 Constipation, unspecified | CPT/HCPCS: 74018; 74176 ==